=== PATIENT | female | born 1960 | race Caucasian/White ===

== ENCOUNTER 2019-04-11 17:51 | Inpatient (IN) | payer OTHER ==
[2019-04-11] MEDS ORDERED: IPRATROPIUM-ALBUTEROL 3 ML NEB INHALATION STA (18:35)
[2019-04-11] MEDS ORDERED: methylPREDNISolone SOD SUCCI 125 MG/2 ML VIAL IV STA (18:35)
--- NOTE | 2019-04-11 18:47 | ED ---
SOB HPI - General Chief Complaint: Shortness of Breath Stated Complaint: pulmonary embolism Time Seen by Provider: 04/11/19 18:25 Source: patient Mode of arrival: wheelchair Limitations: no limitations - History of Present Illness Initial Comments: This 58-year-old white female presents complaining of shortness of breath. She states that it is been going on for approximate 4-5 days. She does relate that she has chronic breathing problems as she has COPD, asthma, and multiple nodules on her lungs. She states that it is much worse with any exertion she states that she almost feels like her extremities get very weak. She denies any chest pain. She does relate a slight cough with whitish production. She denies any fever. There's been no leg pain or swelling. She's been taking her home Advair. She took a breathing treatment this morning as well. She was seen at her primary care physician's office today and sent to the ER for further pratima atment. She does wear oxygen normally. - Related Data Home Medications Medication Instructions Recorded Confirmed No Known Home Medications 04/11/19 04/11/19 Allergies Allergy/AdvReac Type Severity Reaction Status Date / Time No Known Allergies Allergy Verified 04/11/19 18:34 Review of Systems ROS Statement: Those systems with pertinent positive or pertinent negative responses have been documented in the HPI. ROS Other: All systems not noted in ROS Statement are negative. Past Medical History Past Medical History: COPD Additional Past Medical History / Comment(s): lung nodules History of Any Multi-Drug Resistant Organisms: None Reported Additional Past Surgical History / Comment(s): pelvic surg Past Psychological History: Anxiety Smoking Status: Former smoker Past Alcohol Use History: None Reported Past Drug Use History: None Reported General Exam - General Exam Comments Initial Comments: GENERAL: The patient is well nourished and well hydrated. VITAL SIGNS: Heart rate, blood pressure, respiratory rate reviewed as recorded in nurse's notes. EYES: Pupils are round and reactive. Extraocular movements are intact. No conjunctival / lid redness or swelling. ENT: No external evidence of injury, swelling, or ecchymosis. Airway is patent. Throat is clear. NECK: Nontender. No swelling or evidence of injury. No subcutaneous emphysema. Trachea is midline. No thyroid mass. HEART: Regular rate and rhythm. Good peripheral pulses. LUNGS/CHEST: Diminished breath sounds bilaterally. No rales, rhonchi, or wheezes. No ecchymosis, subcutaneous emphysema, or tenderness. ABDOMEN: Abdomen soft without tenderness. No palpable masses or organomegaly. No peritoneal signs. No abdominal wall swelling or ecchymosis. EXTREMITIES: No extremity tenderness. Normal muscle tone and function. No thoracolumbar tenderness. NEUROLOGIC: Sensation is grossly intact. Cranial nerve exam reveals face is symmetrical, tongue is midline, speech is clear. SKIN: No abrasions or ecchymosis is noted. No induration or masses noted. PSYCHIATRIC: Alert and oriented. Appropriate behavior and judgment. Limitations: no limitations Course Vital Signs 04/11/19 04/11/19 04/11/19 17:55 19:00 19:07 Temperature 98.3 F Pulse Rate 102 H 83 82 Respiratory 24 18 Rate Blood Pressure 159/67 163/78 O2 Sat by Pulse 87 L 95 Oximetry 04/11/19 19:23 Temperature Pulse Rate 84 Respiratory Rate Blood Pressure O2 Sat by Pulse Oximetry Medical Decision Making - Medical Decision Making The patient was seen and examined. All diagnostics were reviewed. The patient had an EKG done which shows a normal sinus rhythm at a rate of 89. There is no acute ST-T wave changes noted. The ID intervals 146, QRS duration is 84, and QTC intervals 442. She does receive a DuoNeb breathing treatment as well as Solu-Medrol 125 mg. The chest x-ray does not show any acute process per my review of final radiologic review pending. The laboratory overall is unremarkable. The patient likely does have an exacerbation of her COPD. She was somewhat worried that she could have a cardiac condition that could be causing her symptoms as well. Her troponin and d-dimer are negative at this point as well. Is felt as though she would benefit from admission to the hospital as her pulse ox was down to 87%. His felt as though she benefit from continued IV steroids and breathing treatments. She states that the last time she had a stress test was over 15 years ago and she may benefit from an additional stress test. Case will be discussed with internal medicine shortly. - Lab Data Result diagrams: 04/11/19 18:27 04/11/19 18:27 Lab Results 04/11/19 04/11/19 04/11/19 Range/Units 18:27 18:27 18:27 WBC 7.6 (3.8-10.6) k/uL RBC 4.74 (3.80-5.40) m/uL Hgb 13.3 (11.4-16.0) gm/dL Hct 41.8 (34.0-46.0) % MCV 88.2 (80.0-100.0) fL MCH 28.2 (25.0-35.0) pg MCHC 31.9 (31.0-37.0) g/dL RDW 15.1 (11.5-15.5) % Plt Count 196 (150-450) k/uL Neutrophils % 66 % Lymphocytes % 19 % Monocytes % 8 % Eosinophils % 4 % Basophils % 0 % Neutrophils # 5.0 (1.3-7.7) k/uL Lymphocytes # 1.5 (1.0-4.8) k/uL Monocytes # 0.6 (0-1.0) k/uL Eosinophils # 0.3 (0-0.7) k/uL Basophils # 0.0 (0-0.2) k/uL PT 9.7 (9.0-12.0) sec INR 0.9 (<1.2) APTT 22.6 (22.0-30.0) sec D-Dimer 0.25 (<0.60) mg/L FEU Sodium 141 (137-145) mmol/L Potassium 4.2 (3.5-5.1) mmol/L Chloride 105 (98-107) mmol/L Carbon Dioxide 30 (22-30) mmol/L Anion Gap 6 mmol/L BUN 14 (7-17) mg/dL Creatinine 0.49 L (0.52-1.04) mg/dL Est GFR (CKD-EPI)AfAm >90 (>60 ml/min/1.73 sqM) Est GFR (CKD-EPI)NonAf >90 (>60 ml/min/1.73 sqM) Glucose 121 H (74-99) mg/dL Calcium 9.5 (8.4-10.2) mg/dL Total Bilirubin 0.3 (0.2-1.3) mg/dL AST 21 (14-36) U/L ALT 24 (9-52) U/L Alkaline Phosphatase 70 (38-126) U/L Troponin I (0.000-0.034) ng/mL NT-Pro-B Natriuret Pep pg/mL Total Protein 6.8 (6.3-8.2) g/dL Albumin 4.0 (3.5-5.0) g/dL 04/11/19 04/11/19 Range/Units 18:27 18:27 WBC (3.8-10.6) k/uL RBC (3.80-5.40) m/uL Hgb (11.4-16.0) gm/dL Hct (34.0-46.0) % MCV (80.0-100.0) fL MCH (25.0-35.0) pg MCHC (31.0-37.0) g/dL RDW (11.5-15.5) % Plt Count (150-450) k/uL Neutrophils % % Lymphocytes % % Monocytes % % Eosinophils % % Basophils % % Neutrophils # (1.3-7.7) k/uL Lymphocytes # (1.0-4.8) k/uL Monocytes # (0-1.0) k/uL Eosinophils # (0-0.7) k/uL Basophils # (0-0.2) k/uL PT (9.0-12.0) sec INR (<1.2) APTT (22.0-30.0) sec D-Dimer (<0.60) mg/L FEU Sodium (137-145) mmol/L Potassium (3.5-5.1) mmol/L Chloride (98-107) mmol/L Carbon Dioxide (22-30) mmol/L Anion Gap mmol/L BUN (7-17) mg/dL Creatinine (0.52-1.04) mg/dL Est GFR (CKD-EPI)AfAm (>60 ml/min/1.73 sqM) Est GFR (CKD-EPI)NonAf (>60 ml/min/1.73 sqM) Glucose (74-99) mg/dL Calcium (8.4-10.2) mg/dL Total Bilirubin (0.2-1.3) mg/dL AST (14-36) U/L ALT (9-52) U/L Alkaline Phosphatase (38-126) U/L Troponin I <0.012 (0.000-0.034) ng/mL NT-Pro-B Natriuret Pep 143 pg/mL Total Protein (6.3-8.2) g/dL Albumin (3.5-5.0) g/dL Disposition Clinical Impression: Acute respiratory failure, COPD exacerbation, Hypertension Disposition: ADMITTED IP TO THIS HOSP Condition: Fair Is patient prescribed a controlled substance at d/c from ED?: No Referrals: Hussain Raymond MD [Primary Care Provider] - 1-2 days Time of Disposition: 20:51 Decision Date: 04/11/19 Decision Time: 20:51
[2019-04-11 18:53] LABS: Basophils % (A) 0 %; Eosinophils # (A) 0.3 k/uL (0-0.7); Eosinophils % (A) 4 %; HCT 41.8 % (34.0-46.0); HGB 13.3 gm/dL (11.4-16.0); Lymphocytes # (A) 1.5 k/uL (1.0-4.8); Lymphocytes % (A) 19 %; MCH 28.2 pg (25.0-35.0); MCHC 31.9 g/dL (31.0-37.0); MCV 88.2 fL (80.0-100.0); Mean Platelet Volume 8.3; Monocytes # (A) 0.6 k/uL (0-1.0); Monocytes % (A) 8 %; Neutrophils % (A) 66 %; Platelet Count 196 k/uL (150-450); RBC 4.74 m/uL (3.80-5.40); RDW 15.1 % (11.5-15.5); WBC 7.6 k/uL (3.8-10.6)
[2019-04-11 19:00] LABS: ALT 24 U/L (9-52); AST 21 U/L (14-36); African American GFR (CKD) >90 (>60 ml/min/1.73 sqM); Alkaline Phosphatase 70 U/L (38-126); Anion Gap 6 mmol/L; Blood Urea Nitrogen 14 mg/dL (7-17); Calcium 9.5 mg/dL (8.4-10.2); Carbon Dioxide 30 mmol/L (22-30); Chloride 105 mmol/L (98-107); Glucose 121 mg/dL (74-99); Potassium 4.2 mmol/L (3.5-5.1); Sodium 141 mmol/L (137-145); Total Bilirubin 0.3 mg/dL (0.2-1.3); Total Protein 6.8 g/dL (6.3-8.2)
[2019-04-11 19:29] LABS: D-Dimer 0.25 mg/L FEU (<0.60); INR 0.9 (<1.2); Partial Thromboplastin Time 22.6 sec (22.0-30.0); Prothrombin Time 9.7 sec (9.0-12.0)
--- NOTE | 2019-04-11 20:30 | XR ---
EXAMINATION: XR chest 2V DATE AND TIME: 04/11/2019 7:04 PM CLINICAL INDICATION: PHH; difficulty breathing TECHNIQUE: Departmental protocol COMPARISON: None FINDINGS: The blank soft tissues are prominent. There is a fine reticular pattern of increased density mildly silhouetting the pulmonary vasculature with cephalization of the pulmonary vasculature noted. These findings are subtle but can correlate wi th a clinical diagnosis of mild interstitial phase pulmonary edema. There are no geographic zones of pulmonary consolidative opacity to suggest atelectasis or pneumonia. The pleural spaces are negative. The cardiac silhouette is mildly enlarged. The remainder of the mediastinal silhouette is unremarkabl e. The skeletal structures and soft tissues are negative for acute findings. IMPRESSION: Subtle bilateral lung parenchymal findings can correlate with a clinical diagnosis of mild interstiti al phase pulmonary edema.
[2019-04-11] MEDS ORDERED: ASPIRIN 81 MG PO STA (20:48)
[2019-04-11] MEDS ORDERED: ALBUTEROL NEBULIZED 2.5 MG/3 ML INHALATION STA (21:07)
[2019-04-11] MEDS: methylPREDNISolone SOD SUCCI 125 MG/2 ML VIAL IV SCH (23:14)
[2019-04-12] MEDS: methylPREDNISolone SOD SUCCI 125 MG/2 ML VIAL IV SCH ×4 (05:32→23:48)
[2019-04-12] MEDS: IPRATROPIUM-ALBUTEROL 3 ML NEB INHALATION PRN ×3 (06:18→15:39)
[2019-04-12] MEDS ORDERED: BENZOCAINE/MENTHOL LOZENG 1 EACH LOZENGE MUCOUS MEM PRN (06:36)
[2019-04-12 06:42] LABS: Glucose,Whole Blood 238 mg/dL (75-99)
[2019-04-12] MEDS ORDERED: BUDESONIDE 0.5 MG/2 ML NEBU INHALATION SCH (08:00)
[2019-04-12] MEDS ORDERED: ASPIRIN 325 MG TAB PO SCH (09:00)
[2019-04-12 11:49] LABS: Glucose,Whole Blood 137 mg/dL (75-99)
[2019-04-12] MEDS: INSULIN ASPART (NovoLOG) 100 UNIT/ML VIAL SQ SCH ×4 (11:59→21:57)
--- NOTE | 2019-04-12 12:16 | P.CNPUL ---
History of Present Illness Consult date: 04/12/19 Reason for consult: COPD History of present illness: 58-year-old female patient with known history of COPD, and ex-smoker who has been followed up by 2 different regulatory affairs portfolio leader at [facility] in [facility]. The patient is oxygen and the patient has uses oxygen on a when necessary basis percent nighttime. The patient has also utilized a combination of Symbicort and Spiriva in the past. She has an albuterol nebulized at home. She came in to the hospital because of worsening shortness of breath of few days' duration. Limited cough and congestion. Increased dyspnea cough chest tightness and wheezing and the patient was actively bronchospastic and wheezy. No fever. No chills. No angina. No pleurisy. No swelling in lower e xtremities. She has undergone previous CAT scan of the chest for questionable pulmonary nodules and these are being monitored through [facility]. I do not have any of the reports from her prior CAT scan of the chest. No nausea. No vomiting. No abdominal pain. Chest x-ray status is with COPD and there is no airspace disease or infiltrates. Troponins are negative. Review of Systems Constitutional: Denies chills, Denies fever Eyes: denies blurred vision, denies bulging eye, denies decreased vision Ears: deny: decreased hearing, ear discharge, earache, tinnitus Ears, nose, mouth and throat: Denies headache, Denies sore throat Cardiovascular: Reports dyspnea on exertion Respiratory: Reports cough, Reports dyspnea, Reports wheezing Gastrointestinal: Denies abdominal pain, Denies diarrhea, Denies nausea, Denies vomiting Genitourinary: Reports as per HPI Menstruation: Reports as per HPI Musculoskeletal: absent: ankle pain, ankle stiffness, ankle swelling Integumentary: Reports as per HPI Neurological: Reports as per HPI Psychiatric: Reports as per HPI Endocrine: Reports as per HPI Hematologic/Lymphatic: Reports as per HPI Allergic/Immunologic: Reports as per HPI Past Medical History Past Medical History: COPD Additional Past Medical History / Comment(s): lung nodules History of Any Multi-Drug Resistant Organisms: None Reported Past Surgical History: Appendectomy, Hysterectomy Additional Past Surgical History / Comment(s): pelvic surg, tummy tuck, Past Anesthesia/Blood Transfusion Reactions: Previous Problems w/ Anesthesia Additional Past Anesthesia/Blood Transfusion Reaction / Comment(s): Hard time bringing pt out of anesthesia. Past Psychological History: Anxiety Smoking Status: Former smoker Past Alcohol Use History: Occasional Additional Past Alcohol Use History / Comment(s): Stopped smoking in 2013. Pt states that she smoked 1 ppd/ Past Drug Use History: None Reported - Past Family History Mother Family Medical History: Congestive Heart Failure (CHF) Additional Family Medical History / Comment(s): CABG X2 Father Additional Family Medical History / Comment(s): Father passed from Hodgkin's Lymphoma Medications and Allergies Home Medications Medication Instructions Recorded Confirmed Type ALPRAZolam [Xanax] 0.5 mg PO BID 04/12/19 04/12/19 History Albuterol Inhaler [Ventolin Hfa 1 - 2 puff INHALATION RT-Q4H PRN 04/12/19 04/12/19 History Inhaler] Budesonide/Formoterol Fumarate 2 puff INHALATION RT-DAILY 04/12/19 04/12/19 History [Symbicort 160-4.5 Mcg Inhaler] HYDROcodone/APAP 10-325MG [[place] 1 tab PO TID-W/MEALS 04/12/19 04/12/19 History 10-325] Ipratropium-Albuterol Nebulize 3 ml INHALATION RT-Q4H PRN 04/12/19 04/12/19 History [Duoneb 0.5 mg-3 mg/3 ml Soln] Liothyronine Sodium [Cytomel] 25 mcg PO DAILY 04/12/19 04/12/19 History Montelukast [Singulair] 10 mg PO DAILY 04/12/19 04/12/19 History Prasterone (Dhea) [Dhea] 25 mg PO DAILY 04/12/19 04/12/19 History Thyroid,Pork [[place] Thyroid] 120 mg PO DAILY 04/12/19 04/12/19 History Tiotropium [place] [Spiriva 1 spray INHALATION RT-DAILY 04/12/19 04/12/19 Histo ry Respimat] Tretinoin [Retin-A 0.1%] 1 applic TOPICAL HS 04/12/19 04/12/19 History Ubidecarenone [Co Q-10] 100 mg PO DAILY 04/12/19 04/12/19 History Verapamil HCl [Verapamil ER] 240 mg PO DAILY 04/12/19 04/12/19 History Vitamin B Complex 1 cap PO DAILY 04/12/19 04/12/19 History Allergies Allergy/AdvReac Type Severity Reaction Status Date / Time No Known Allergies Allergy Verified 04/11/19 18:34 Physical Exam Vitals: Vital Signs Temp Pulse Pulse Resp BP BP Pulse Ox 04/12/19 11:47 84 04/12/19 11:37 84 04/12/19 07:30 97.7 F 108 H 18 154/71 94 L 04/12/19 06:33 106 H 04/12/19 06:19 104 H 04/12/19 03:53 98.3 F 100 18 161/82 89 L 04/12/19 03:46 18 04/12/19 00:00 18 04/11/19 23:31 98.2 F 107 H 18 174/81 87 L 04/11/19 22:37 18 04/11/19 21:34 98.5 F 104 H 18 167/71 87 L 04/11/19 19:23 84 04/11/19 19:07 82 04/11/19 19:00 83 18 163/78 95 04/11/19 17:55 98.3 F 102 H 24 159/67 87 L Intake and Output 04/11/19 04/12/19 04/12/19 22:59 06:59 14:59 Intake Total 20 Balance 20 Intake: Amount of Fluid Infused ( 20 ml) Other: Voiding Method Toilet Toilet Toilet # Voids 1 1 Weight 79.379 kg The patient appeared well nourished and normally developed. Vital signs as documented. Head exam is unremarkable. No scleral icterus or corneal arcus noted. Neck is without jugular venous distension, thyromegaly, or carotid bruits. Carotid upstrokes are brisk bilaterally. Lungs examination revealed the patient has a barrel chest. The patient is marked diminished breath sounds in t he lung bases bilaterally along with prolongation of expiratory phase of breathing. Cardiac exam reveals the PMI to be normally sized and situated. Rhythm is regular. First and second heart sounds normal. No murmurs, rubs or gallops. Abdominal exam reveals normal bowel sounds, no masses, no organomegaly and no aortic enlargement. Extremities are nonedematous and both femoral and pedal pulses are normal.Examination of the skin revealed no evidence of significant rashes, suspicious appearing nevi or other concerning lesions. Neurologically the patient is awake and alert and is no focal neurological deficit. Results - Laboratory Findings CBC and BMP: 04/11/19 18:27 04/11/19 18: PT/INR, D-dimer PT 9.7 sec (9.0-12.0) 04/11/19 18: INR 0.9 (<1.2) 04/11/19 18: D-Dimer 0.25 mg/L FEU (<0.60) 04/11/19 18: Abnormal lab findings: Abnormal Labs 04/11/19 04/12/19 04/12/19 18: 06:35 11:48 Creatinine 0.49 L Glucose 121 H POC Glucose (mg/dL) 238 H 137 H - Diagnostic Findings Chest x-ray: image reviewed Assessment and Plan Plan: 1 acute COPD exacerbation with secondary shortness of breath 2 ex-smoker 3 history of bilateral pulmonary nodules, not seen on today's chest x-ray. The patient has been followed up by serial CAT scan of the chest at [facility] 4 hypothyroidism currently on thyroid hormone replacement Plan Continue DuoNeb nebulized treatments around the clock. IV Solu Medrol 60 mg every 6 hours. Since this patient to a combination of Perforomist and Pulmicort nebulized treatments twice a day and discontinue the Symbicort for now. We'll obtain records from her regulatory affairs portfolio leader regarding her previous pulmonary nodules. We'll continue to follow.
[2019-04-12] MEDS: ENOXAPARIN 40 MG/0.4 ML SYRINGE SQ SCH (12:55)
[2019-04-12] MEDS: HYDROcodone/APAP 10-325MG 1 EACH TAB PO SCH ×2 (12:59→18:03)
[2019-04-12] MEDS: VERAPAMIL SR 240 MG TABLET.ER PO SCH (13:00)
[2019-04-12] MEDS: THYROID, PORK 30 MG TAB PO SCH (13:00)
[2019-04-12] MEDS: LIOTHYRONINE SODIUM 5 MCG TAB PO SCH (13:01)
[2019-04-12] MEDS: ALPRAZolam 0.5 MG TAB PO SCH ×2 (13:01→20:37)
[2019-04-12] MEDS: MONTELUKAST 10 MG TAB PO SCH (13:10)
--- NOTE | 2019-04-12 14:11 | P.CRDCN ---
History of Present Illness History of present illness: This is a pleasant 58-year-old female past medical history significant for COPD, hypertension and benign lung nodules. She denies history of coronary artery disease, dyslipidemia or diabetes mellitus. She does not follow regularly with anyone from cardiology. We have been asked to see her in consultation for shortness of breath. She states she has been short of breath getting p rogressively worse over the last 1-month. The last 1-week has been significantly worse prompting her to come in for further evaluation. She denies chest pain, palpitations, dizziness, nausea, vomiting or diaphoresis. She is seen and examined sitting up in the bed in no acute distress. EKG reveals sinus mechanism with no acute ST or T-wave abnormalities. Chest xray reveals subtle bilateral lung parenchymal findings with mild interstitial pulmonary edema. Laboratory data reviewed, WBC 7.6, hgb 13.3, plt 196, d-dimer 0.25, sodium 141, potassium 4.2, creatinine 0.49, cardiac enzymes negative x3, NTproBNP 143. Current cardiac medications include verapamil 240 mg daily. At the time of my exam: CONSTITUTIONAL: Denies fever. Denies chills. EYES: Denies blurred vision. Denies vision changes. Denies eye pain. EARS, NOSE, MOUTH & THROAT: Denies headache. Denies sore throat. Denies ear pain. CARDIOVASCULAR: Denies chest pain. Complains of shortness of breath. Denies orthopnea. Denies PND. Denies palpitations. RESPIRATORY: Complains of cough. GASTROINTESTINAL: Denies abdominal pain. Denies diarrhea. Denies constipation. Denies nausea. Denies vomiting. MUSCULOSKELETAL: Denies myalgias. INTEGUMENTARY: Denies pruitis. Denies rash. NEUROLOGIC: Denies numbness. Denies tingling. Denies weakness. PSYCHIATRIC: Denies anxiety. Denies depression. ENDOCRINE: Denies fatigue. Denies weight change. Denies polydipsia. Denies polyurina. GENITOURINARY: Denies burning, hematuria or urgency with micturation. HEMATOLOGIC: Denies history of anemia. Denies bleeding. Blood pressure 178/81 heart rate 99 afebrile and maintaining oxygen saturation on nasal cannula GENERAL: This is a 58-year-old female in no apparent distress at the time of my examination. HEENT: Head is atraumatic, normocephalic. Pupils are equal, round. Sclerae anicteric. Conjunctivae are clear. Mucous membranes of the mouth are moist. Neck is supple. There is no jugular venous distention. No carotid bruit is heard. LUNGS: Clear to auscultation no wheezes, rales or rhonchi. No chest wall tenderness is noted on palpation or with deep breathing. Significantly diminished. HEART: Regular rate and rhythm without murmurs, rubs or gallops. S1 and S2 heard. ABDOMEN: Soft, nontender. Bowel sounds are heard. No organomegaly noted. EXTREMITIES: No evidence of peripheral edema and no calf tenderness noted. VASCULAR: Radial and dorsalis pedis pulses palpated, no evidence of clubbing. NEUROLOGIC: Patient is awake, alert and oriented x3. ASSESSMENT Shortness of breath, progressive. An acute coronary event has been ruled out. Acute exacerbation of COPD Chronic lung nodules Former nicotine dependence PLAN An acute coronary event has been ruled out. No evidence to suggest heart failure, pt is euvolemic. Symptoms related to COPD. Echo has been obtained and will be reviewed. Ongoing medical management. We will follow as needed, thank you for this consultation. Nurse Practitioner note has been reviewed, I agree with a documented findings and plan of care. Patient was seen and examined. Past Medical History Past Medical History: COPD Additional Past Medical History / Comment(s): lung nodules History of Any Multi-Drug Resistant Organisms: None Reported Past Surgical History: Appendectomy, Hysterectomy Additional Past Surgical History / Comment(s): pelvic surg, tummy tuck, Past Anesthesia/Blood Transfusion Reactions: Previous Problems w/ Anesthesia Additional Past Anesthesia/Blood Transfusion Reaction / Comment(s): Hard time bringing pt out of anesthesia. Past Psychological History: Anxiety Smoking Status: Former smoker Past Alcohol Use History: Occasional Additional Past Alcohol Use History / Comment(s): Stopped smoking in 2013. Pt states that she smoked 1 ppd/ Past Drug Use History: None Reported - Past Family History Mother Family Medical History: Congestive Heart Failure (CHF) Additional Family Medical History / Comment(s): CABG X2 Father Additional Family Medical History / Comment(s): Father passed from Hodgkin's Lymphoma Medications and Allergies Home Medications Medication Instructions Recorded Confirmed Type ALPRAZolam [Xanax] 0.5 mg PO BID 04/12/19 04/12/19 History Albuterol Inhaler [Ventolin Hfa 1 - 2 puff INHALATION RT-Q4H PRN 04/12/19 04/12/19 History Inhaler] Budesonide/Formoterol Fumarate 2 puff INHALATION RT-DAILY 04/12/19 04/12/19 History [Symbicort 160-4.5 Mcg Inhaler] HYDROcodone/APAP 10-325MG [[place] 1 tab PO TID-W/MEALS 04/12/19 04/12/19 History 10-325] Ipratropium-Albuterol Nebulize 3 ml INHALATION RT-Q4H PRN 04/12/19 04/12/19 History [Duoneb 0.5 mg-3 mg/3 ml Soln] Liothyronine Sodium [Cytomel] 25 mcg PO DAILY 04/12/19 04/12/19 History Montelukast [Singulair] 10 mg PO DAILY 04/12/19 04/12/19 History Prasterone (Dhea) [Dhea] 25 mg PO DAILY 04/12/19 04/12/19 History Thyroid,Pork [[place] Thyroid] 120 mg PO DAILY 04/12/19 04/12/19 History Tiotropium [place] [Spiriva 1 spray INHALATION RT-DAILY 04/12/19 04/12/19 History Respimat] Tretinoin [Retin-A 0.1%] 1 applic TOPICAL HS 04/12/19 04/12/19 History Ubidecarenone [Co Q-10] 100 mg PO DAILY 04/12/19 04/12/19 History Verapamil HCl [Verapamil ER] 240 mg PO DAILY 04/12/19 04/12/19 History Vitamin B Complex 1 cap PO DAILY 04/12/19 04/12/19 History Allergies Allergy/AdvReac Type Severity Reaction Status Date / Time No Known Allergies Allergy Verified 04/11/19 18:34 Physical Exam Vitals: Vital Signs Temp Pulse Pulse Resp BP BP BP 04/12/19 11:47 84 04/12/19 11:45 97.6 F 99 18 178/81 04/12/19 11:37 84 04/12/19 07:30 97.7 F 108 H 18 154/71 04/12/19 06:33 106 H 04/12/19 06:19 104 H 04/12/19 03:53 98.3 F 100 18 161/82 04/12/19 03:46 18 04/12/19 00:00 18 04/11/19 23:31 98.2 F 107 H 18 174/81 04/11/19 22:37 18 04/11/19 21:34 98.5 F 104 H 18 167/71 04/11/19 19:23 84 04/11/19 19:07 82 04/11/19 19:00 83 18 163/78 04/11/19 17:55 98.3 F 102 H 24 159/67 Pulse Ox 04/12/19 11:47 04/12/19 11:45 94 L 04/12/19 11:37 04/12/19 07:30 94 L 04/12/19 06:33 04/12/19 06:19 04/12/19 03:53 89 L 04/12/19 03:46 04/12/19 00:00 04/11/19 23:31 87 L 04/11/19 22:37 04/11/19 21:34 87 L 04/11/19 19:23 04/11/19 19:07 04/11/19 19:00 95 04/11/19 17:55 87 L Intake and Output 04/11/19 04/12/19 04/12/19 22:59 06:59 14:59 Intake Total 20 Balance 20 Intake: Amount of Fluid Infused ( 20 ml) Other: Voiding Method Toilet Toilet Toilet # Voids 1 1 Weight 79.379 kg Results 04/11/19 18:27 04/11/19 18:27 Cardiac Enzymes 04/11/19 04/11/19 04/12/19 Range/Units 18:27 18:27 00:18 AST 21 (14-36) U/L Troponin I <0.012 <0.012 (0.000-0.034) ng/mL 04/12/19 Range/Units 06:08 AST (14-36) U/L Troponin I <0.012 (0.000-0.034) ng/mL Coagulation 04/11/19 Range/Units 18:27 PT 9.7 (9.0-12.0) sec APTT 22.6 (22.0-30.0) sec CBC 04/11/19 Range/Units 18:27 WBC 7.6 (3.8-10.6) k/uL RBC 4.74 (3.80-5.40) m/uL Hgb 13.3 (11.4-16.0) gm/dL Hct 41.8 (34.0-46.0) % Plt Count 196 (150-450) k/uL Comprehensive Metabolic Panel 04/11/19 Range/Units 18:27 Sodium 141 (137-145) mmol/L Potassium 4.2 (3.5-5.1) mmol/L Chloride 105 (98-107) mmol/L Carbon Dioxide 30 (22-30) mmol/L BUN 14 (7-17) mg/dL Creatinine 0.49 L (0.52-1.04) mg/dL Glucose 121 H (74-99) mg/dL Calcium 9.5 (8.4-10.2) mg/dL AST 21 (14-36) U/L ALT 24 (9-52) U/L Alkaline Phosphatase 70 (38-126) U/L Total Protein 6.8 (6.3-8.2) g/dL Albumin 4.0 (3.5-5.0) g/dL Current Medications Generic Name Dose Route Start Last Admin Trade Name Freq PRN Reason Stop Dose Admin Hydrocodone Bitart/Acetaminophen 1 each 04/12/19 12:30 04/12/19 12:59 [place] 10 PO 1 each TID-W/MEALS ROXY Administration Albuterol/Ipratropium 3 ml 04/11/19 20:52 04/12/19 11:37 Duoneb 0.5 Mg-3 Mg/3 Ml Soln INHALATION 3 ml RT-Q4H PRN Administration Shortness Of Breath Or Wheezing Alprazolam 0.5 mg 04/12/19 10:15 04/12/19 13:01 Xanax PO Not Given BID ROXY Aspirin 325 mg 04/12/19 09:00 04/12/19 12:55 Aspirin PO 325 mg DAILY ROXY Administration Benzocaine/Menthol 1 each 04/12/19 06:36 04/12/19 06:54 Cepacol Lozenge MUCOUS MEM 1 each Q4HR PRN Administration Cough Budesonide 0.5 mg 04/12/19 08:00 04/12/19 06:18 Pulmicort INHALATION 0.5 mg RT-BID ROXY Administration Enoxaparin Sodium 40 mg 04/12/19 09:00 04/12/19 12:55 Lovenox SQ 40 mg DAILY ROXY Administration Formoterol Fumarate 20 mcg 04/12/19 20:00 Perforomist INHALATION RT-BID ROXY Insulin Aspart 0 unit 04/12/19 07:30 04/12/19 12:43 Novolog SQ Not Given ACHS [facility] Protocol Liothyronine Sodium 25 mcg 04/12/19 10:15 04/12/19 13:01 Cytomel PO 25 mcg DAILY ROXY Administration Methylprednisolone Sodium Succinate 60 mg 04/12/19 00:00 04/12/19 12:56 Solu-Medrol IV 60 mg Q6HR ROXY Administration Montelukast Sodium 10 mg 04/12/19 10:15 04/12/19 13:10 Singulair PO 10 mg DAILY ROXY Administration Prasterone (Dhea) [ 25 mg 04/13/19 09:00 Dhea] 25 Mg PO DAILY ROXY Thyroid 120 mg 04/12/19 10:15 04/12/19 13:00 [place] Thyroid PO 120 mg DAILY ROXY Administration Verapamil HCl 240 mg 04/12/19 10:15 04/12/19 13:00 Isoptin Sr PO 240 mg DAILY ROXY Administration Intake and Output 04/11/19 04/12/19 04/12/19 22:59 06:59 14:59 Intake Total 20 Balance 20 Intake: Amount of Fluid Infused ( 20 ml) Other: Voiding Method Toilet Toilet Toilet # Voids 1 1 Weight 79.379 kg 04/11/19 18:27 04/11/19 18:27
[2019-04-12 16:37] LABS: Glucose,Whole Blood 205 mg/dL (75-99)
--- NOTE | 2019-04-12 18:40 | ECHOF ---
Referral Reason:sob MEASUREMENTS -------- HEIGHT: 162.6 cm WEIGHT: 79.4 kg BP: 161/82 IVSd: 1.4 cm (0.6 - 1.1) LVIDd: 4.1 cm (3.9 - 5.3) LVPWd: 1.4 cm (0.6 - 1.1) IVSs: 1.8 cm LVIDs: 2.8 cm LVPWs: 1.7 cm RVIDd: 2.9 cm (< 3.3) LAESV Index (A-L): 37.51 ml/m Ao Diam: 2.2 cm (2.0 - 3.7) LA Diam: 3.9 cm (2.7 - 3.8) AV Cusp: 1.8 cm (1.5 - 2.6) EPSS: 1.1 cm MV E Jaden: 0.87 m/s MV DecT: 302 ms MV A Jaden: 1.28 m/s MV E/A Ratio: 0.68 RAP: 5.00 mmHg RVSP: 38.17 mmHg MV EF SLOPE: 22.20 mm/s (70 - 150) MV EXCURSION: 0.67 cm (> 18.000) FINDINGS -------- Sinus rhythm. This was a technically difficult study with suboptimal parasternal views. The left ventricular size is normal. There is moderate concentric left ventricular hypertrophy. O verall left ventricular systolic function is normal with, an EF between 55 - 60 %. The right ventricle is normal in size and function. Left atrium is moderately dilated by volume. The right atrial size is normal. Lumason used There is no evidence of aortic regurgitation. Mild mitral annular calcification present. Mild mitral regurgitation is present. Mild tricuspid regurgitation present. There is no evidence of pulmonary hypertension. The right v entricular systolic pressure, as measured by Doppler, is 38.17mmHg. There is no pulmonic regurgitation present. The aortic root size is normal. The inferior vena cava was not well visualized. There is no pericardial effusion. CONCLUSIONS -------- 1. Sinus rhythm. 2. This was a technically difficult study with suboptimal parasternal views. 3. The left ventricular size is normal. 4. There is moderate concentric left ventricular hypertrophy. 5. Overall left ventricular systolic function is normal with, an EF between 55 - 60 %. 6. The right ventricle is normal in size and function. 7. Left atrium is moderately dilated by volume. 8. The right atrial size is normal. 9. Lumason used 10. There is no evidence of aortic regurgitation. 11. Mild mitral annular calcification present. 12. Mild mitral regurgitation is present. 13. Mild tricuspid regurgitation present. 14. There is no evidence of pulmonary hypertension. 15. The right ventricular systolic pressure, as measured by Doppler, is 38.17mmHg. 16. There is no pulmonic regurgitation present. 17. The aortic root size is normal. 18. The inferior vena cava was not well visualized. 19. There is no pericardial effusion. CUT OFF TENDER GLASS: Adriane Vasquez RDCS
[2019-04-12] MEDS: FORMOTEROL FUMARATE 20 MCG/2 ML NEBU INHALATION SCH (20:08)
[2019-04-12] MEDS: IPRATROPIUM-ALBUTEROL 3 ML NEB INHALATION SCH (20:08)
[2019-04-12] MEDS: BUDESONIDE 1 MG/2 ML NEBU INHALATION SCH (20:16)
[2019-04-12] MEDS ORDERED: TRETINOIN TOPICAL SCH (21:00)
[2019-04-12 21:04] LABS: Glucose,Whole Blood 179 mg/dL (75-99)
--- NOTE | 2019-04-12 22:37 | HP ---
HISTORY AND PHYSICAL DATE OF ADMISSION: 04/11/2019 DATE OF SERVICE: 04/12/2019 PRESENTING COMPLAINT: Short of breath. HISTORY OF PRESENTING COMPLAINT: This is a pleasant 58-year-old patient of Dr. Raymond. Chronic stable medical conditions include lung nodules being followed out of [place], anxiety, hypothyroid, hypertension. Patient at her baseline is short of breath but for about a week has been progressively more short of breath, with some edema in the lower extremity. Minimal cough. No sputum. No fever. No chills. Some wheezing. She became quite short of breath and decided to come in. Pulse ox was 87% on room air. No chest pain. No palpitations. REVIEW OF SYSTEMS: CONSTITUTIONAL: Tired. HEENT: None. RESPIRATORY: As above. CARDIOVASCULAR: Orthopnea. GASTROINTESTINAL: None. MUSCULOSKELETAL: Pain in the joints. DERMATOLOGICAL: None. HEMATOLOGICAL: None. LYMPHATICS: None. PSYCHIATRY: Anxiety. NEUROLOGICAL: None. PAST MEDICAL HISTORY: 1. COPD. 2. Lung nodules. 3. Anxiety. 4. Hypothyroid. 5. Hypertension. PAST SURGICAL HISTORY: 1. Appendectomy. 2. Hysterectomy. 3. Pelvic surgery. 4. Tummy tuck. PSYCH HISTORY: Anxiety. SOCIAL HISTORY: The patient smoked a pack a day for 40 years; stopped in 2013. Alcohol none. Lives by herself. FAMILY HISTORY: Congestive heart failure, coronary artery bypass. HOME MEDICATIONS: 1. Vitamin B complex 1 capsule p.o. daily. 2. Verapamil ER 240 mg a day. 3. CoQ10 100 mg p.o. daily. 4. Retin-A 0.1% topically at bedtime. 5. Spiriva 1 spray daily. 6. [place] Thyroid 120 mg p.o. daily. 7. Singulair 10 mg daily. 8. Cytomel 25 mcg p.o. daily. 9. DuoNeb q.4 p.r.n. 10.[place] 10 one tablet t.i.d. with meals. 11.Symbicort 160/4.5 two puffs daily. 12.Ventolin HFA 1 or 2 puffs q.4 p.r.n. 13.Xanax 0.5 p.o. b.i.d. ALLERGIES: NONE. PHYSICAL EXAMINATION: VITAL SIGNS ON PRESENTATION: Temperature 98.3, pulse 102, respiration 24, blood pressure 159/67, pulse ox 87% on room air. GENERAL APPEARANCE: Well built; BMI 30. Sitting at the edge of bed, short of breath. EYES: Pupils equal. Conjunctivae normal. HEENT: External appearance of nose and ears normal. Oral cavity normal. NECK: JVD not raised. Mass not palpable. RESPIRATORY: Effort increased. LUNGS: Diminished breath sounds. Prolonged expiration. CARDIOVASCULAR: First and second sounds normal. Some edema present. ABDOMEN: Soft, nontender. Liver and spleen not palpable. LYMPHATIC: No lymph node palpable in neck or axillae. PSYCHIATRY: Alert and oriented x3. Mood and affect normal. NEUROLOGICAL: Pupils equal. Cranial nerves grossly intact. Power and sensation grossly intact. INVESTIGATIONS: White count 7.6, hemoglobin 13.3, platelets 196. Potassium 4.2, BUN 14, creatinine 0.49. Accu-Cheks 238, 137. Troponin x3 negative. ProBNP 143. EKG tracing, personally reviewed by me, shows normal sinus rhythm. Chest x-ray film, personally reviewed by me, shows slight cardiomegaly, possibly some chronic changes, interstitial prominence. Two-D echocardiogram shows moderate concentric left ventricular hypertrophy, EF 55% to 60%. Right ventricle is normal in size. ASSESSMENT: 1. Acute chronic obstructive pulmonary disease exacerbation in an ex-smoker. 2. Bilateral lower extremity venous insufficiency. 3. Chronic lung nodules, being followed as an outpatient. 4. Anxiety not otherwise specified. 5. Hypothyroidism. 6. Essential hypertension. 7. Acute hypoxic respiratory failure from chronic obstructive pulmonary disease exacerbation, present on admission. PLAN: Patient was started on IV Solu-Medrol, DuoNeb. Home medications are resumed. Inhaled steroids are also given. Accu-Cheks will be followed. There is no clinical evidence of CHF. Care was discussed the patient. Questions were answered. MMODL / IJN: [id number] /
[2019-04-13] MEDS: IPRATROPIUM-ALBUTEROL 3 ML NEB INHALATION SCH ×6 (00:24→19:20)
[2019-04-13 06:48] LABS: Glucose,Whole Blood 157 mg/dL (75-99)
[2019-04-13] MEDS: FORMOTEROL FUMARATE 20 MCG/2 ML NEBU INHALATION SCH ×2 (07:29→19:20)
[2019-04-13] MEDS: BUDESONIDE 1 MG/2 ML NEBU INHALATION SCH ×2 (07:29→19:20)
[2019-04-13] MEDS ORDERED: NON-FORMULARY DRUG (Vitamin B Complex [Vitamin B Complex] 1 CAP) PO SCH (09:00)
[2019-04-13] MEDS: methylPREDNISolone SOD SUCCI 125 MG/2 ML VIAL IV SCH ×3 (09:38→18:14)
[2019-04-13] MEDS: MONTELUKAST 10 MG TAB PO SCH (09:39)
[2019-04-13] MEDS: ALPRAZolam 0.5 MG TAB PO SCH ×2 (09:39→22:01)
[2019-04-13] MEDS: INSULIN ASPART (NovoLOG) 100 UNIT/ML VIAL SQ SCH ×4 (09:39→22:01)
[2019-04-13] MEDS: HYDROcodone/APAP 10-325MG 1 EACH TAB PO SCH ×3 (09:39→18:13)
[2019-04-13] MEDS: ENOXAPARIN 40 MG/0.4 ML SYRINGE SQ SCH ×2 (09:39→09:55)
[2019-04-13] MEDS: LIOTHYRONINE SODIUM 5 MCG TAB PO SCH (09:40)
[2019-04-13] MEDS: PRASTERONE 25 MG PO SCH (09:40)
[2019-04-13] MEDS: VERAPAMIL SR 240 MG TABLET.ER PO SCH (09:40)
[2019-04-13] MEDS: THYROID, PORK 30 MG TAB PO SCH (09:41)
[2019-04-13 11:35] LABS: Glucose,Whole Blood 203 mg/dL (75-99)
--- NOTE | 2019-04-13 13:36 | P.PN ---
Subjective Progress Note Date: 04/13/19 58-year-old female patient with known history of COPD, and ex-smoker who has been followed up by 2 different drop press hand at in [facility]. The patient is oxygen and the patient has uses oxygen on a when necessary basis percent nighttime. The patient has also utilized a combination of Symbicort and Spiriva in the past. She has an albuterol nebulized at home. She came in to the hospital because of worsening shortness of breath of few days' duration. Limited cough and congestion. Increased dyspnea cough chest tightness and wheezing and the patient was actively bronchospastic and wheezy. No fever. No chills. No angina. No pleurisy. No swelling in lower extremities. She has undergone previous CAT scan of the chest for questionable pulmonary nodules and these are being monitored through . I do not have any of the reports from her prior CAT scan of the chest. No nausea. No vomiting. No abdominal pain. Chest x-ray status is with COPD and there is no airspace disease or infiltrates. Troponins are negative. Today's evaluation of 04/13/2019 the patient is feeling better. The patient is gradually improving and the patient is less short of breath. I was able to review the CAT scan of the chest was done at [facility] and the patient had nonspecific but the pulmonary nodules that are being surveyed by serial CAT scans of the chest. No mediastinal lymphadenopathy. No suspicion for any malignancy. The patient remains on bronchodilators patient on IV Solu- Medrol. No shortness of breath compared to yesterday. No chest pain. No major swelling lower extremities. No hemoptysis. No pleurisy. She is able to speak full sentences. Objective - Vital Signs Vital signs: Vital Signs Temp 98.6 F 04/13/19 08:00 Pulse 82 04/13/19 12:00 Resp 16 04/13/19 12:00 BP 151/82 04/13/19 12:00 Pulse Ox 98 04/13/19 12:00 Intake & Output 04/12/19 04/13/19 04/13/19 18:59 06:59 18:59 Intake Total 400 480 Balance 400 480 Intake: Oral 400 480 Other: Voiding Method Toilet Toilet # Voids 1 2 - Exam The patient appeared well nourished and normally developed. Vital signs as documented. Head exam is unremarkable. No scleral icterus or corneal arcus noted. Neck is without jugular venous distension, thyromegaly, or carotid bruits. Carotid upstrokes are brisk bilaterally. Lungs examination revealed the patient has a barrel chest. The patient is marked diminished breath sounds in the lung bases bilaterally along with prolongation of expiratory phase of breathing. Cardiac exam reveals the PMI to be normally sized and situated. Rhythm is regular. First and second heart sounds normal. No murmurs, rubs or gallops. Abdominal exam reveals normal bowel sounds, no masses, no organomegaly and no aortic enlargement. Extremities are nonedematous and both femoral and pedal pulses are normal.Examination of the skin revealed no evidence of significant rashes, suspicious appearing nevi or other concerning lesions. Neurologically the patient is awake and alert and is no focal neurological deficit. - Labs CBC & Chem 7: 04/11/19 18:27 04/11/19 18:27 Labs: Abnormal Lab Results - Last 24 Hours (Table) 04/12/19 04/12/19 04/13/19 Range/Units 16:36 20:57 06:46 POC Glucose (mg/dL) 205 H 179 H 157 H (75-99) mg/dL 04/13/19 Range/Units 11:33 POC Glucose (mg/dL) 203 H (75-99) mg/dL Microbiology - Last 24 Hours (Table) 04/11/19 18:46 Blood Culture - Preliminary Blood No Growth after 24 hours Assessment and Plan Plan: 1 acute COPD exacerbation with secondary shortness of breath, improving 2 ex-smoker 3 history of bilateral pulmonary nodules, not seen on today's chest x-ray. The patient has been followed up by serial CAT scan of the chest at [facility] 4 hypothyroidism currently on thyroid hormone replacement 5 nonspecific bilateral pulmonary nodules for which the patient is undergoing serial CAT scan of the chest. Plan Continue DuoNeb nebulized treatments around the clock. IV Solu Medrol 60 mg every 6 hours. Since this patient to a combination of Perforomist and Pulmicort nebulized treatments twice a day and the patient is improving. We'll keep the patient has to follow 24 hours for ongoing treatment. Monitor oxygenation and assess for home O2. We'll continue to follow. CAT scan of the chest was reviewed. No need for biopsies or any immediate intervention at this point in time.
[2019-04-13 16:49] LABS: Glucose,Whole Blood 232 mg/dL (75-99)
[2019-04-13 19:33] VITALS: RESP 18
[2019-04-13 20:37] LABS: Glucose,Whole Blood 153 mg/dL (75-99)
--- NOTE | 2019-04-13 23:28 | PN ---
PROGRESS NOTE DATE OF SERVICE: April 13, 2019. PRESENTING COMPLAINT: Short of breath. INTERVAL HISTORY: This ex-smoker presented with severe COPD exacerbation. Breathing is a shade better though still quite a bit short of breath. No cough. No fever. No chills. Tolerating a diet. Sitting up on the bed. REVIEW OF SYSTEMS: Done for constitutional, cardiovascular, GI, pulmonary; relevant findings as above. CURRENT MEDICATIONS: Reviewed that include DuoNeb and IV Solu-Medrol inhaled steroids. PHYSICAL EXAMINATION: VITAL SIGNS: Temperature 98.4, pulse 87, respiratory 18, blood pressure 133/65. Pulse ox 93 percent on 2 L. GENERAL APPEARANCE: Sitting up on bed, awake. EYES: Pupils are equal. Conjunctivae normal. NECK: JVD not raised. Mass not palpable. RESPIRATORY: Effort increased. LUNGS: Diminished breath sounds. Prolonged expiration. CARDIOVASCULAR: 1st and 2nd sounds normal. Minimal edema. ABDOMEN: Soft, nontender. Liver and spleen not palpable. PSYCHIATRY: Alert and oriented x3. Mood and affect normal. INVESTIGATIONS: Accu-Cheks are noted, 203, 232 and 153. ASSESSMENT: 1. Acute severe chronic obstructive pulmonary disease exacerbation in an ex-smoker. 2. Bilateral lower extremity venous insufficiency. 3. Chronic lung nodules being followed as an outpatient out of [place]. 4. Anxiety, not otherwise specified. 5. Hypothyroidism. 6. Essential hypertension. 7. Acute hypoxic respiratory failure from chronic obstructive pulmonary disease. PLAN: Care was discussed with the patient. Condition was explained. Continue current treatment plan. Follow with Pulmonary. MMODL / IJN: [id number] /
[2019-04-14] MEDS: methylPREDNISolone SOD SUCCI 125 MG/2 ML VIAL IV SCH ×3 (00:56→13:01)
[2019-04-14] MEDS: IPRATROPIUM-ALBUTEROL 3 ML NEB INHALATION SCH ×5 (01:20→15:04)
[2019-04-14 06:43] LABS: Glucose,Whole Blood 144 mg/dL (75-99)
[2019-04-14] MEDS: FORMOTEROL FUMARATE 20 MCG/2 ML NEBU INHALATION SCH (07:20)
[2019-04-14] MEDS: BUDESONIDE 1 MG/2 ML NEBU INHALATION SCH (07:20)
[2019-04-14] MEDS: INSULIN ASPART (NovoLOG) 100 UNIT/ML VIAL SQ SCH ×2 (07:40→12:36)
[2019-04-14] MEDS: LIOTHYRONINE SODIUM 5 MCG TAB PO SCH (08:41)
[2019-04-14] MEDS: HYDROcodone/APAP 10-325MG 1 EACH TAB PO SCH ×2 (08:42→13:00)
[2019-04-14] MEDS: MONTELUKAST 10 MG TAB PO SCH (08:42)
[2019-04-14] MEDS: ALPRAZolam 0.5 MG TAB PO SCH (08:42)
[2019-04-14] MEDS: PRASTERONE 25 MG PO SCH (08:43)
[2019-04-14] MEDS: VERAPAMIL SR 240 MG TABLET.ER PO SCH (08:43)
[2019-04-14] MEDS: THYROID, PORK 30 MG TAB PO SCH (08:43)
[2019-04-14] MEDS: ENOXAPARIN 40 MG/0.4 ML SYRINGE SQ SCH (08:43)
[2019-04-14 11:55] VITALS: BP 117/83; TEMP 98.5
[2019-04-14 11:59] LABS: Glucose,Whole Blood 139 mg/dL (75-99)
[2019-04-14 13:13] VITALS: PULSE 78
--- NOTE | 2019-04-14 13:24 | P.PN ---
Subjective Progress Note Date: 04/14/19 58-year-old female patient with known history of COPD, and ex-smoker who has been followed up by 2 different vulnerability researcher at [facility] in [facility]. The patient is oxygen and the patient has uses oxygen on a when necessary basis percent nighttime. The patient has also utilized a combination of Symbicort and Spiriva in the past. She has an albuterol nebulized at home. She came in to the hospital because of worsening shortness of breath of few days' duration. Limited cough and congestion. Increased dyspnea cough chest tightness and wheezing and the patient was actively bronchospastic and wheezy. No fever. No chills. No angina. No pleurisy. No swelling in lower extremities. She has undergone previous CAT scan of the chest for questionable pulmonary nodules and these are being monitored through [facility]. I do not have any of the reports from her prior CAT scan of the chest. No nausea. No vomiting. No abdominal pain. Chest x-ray status is with COPD and there is no airspace disease or infiltrates. Troponins are negative. Today's evaluation of 04/13/2019 the patient is feeling better. The patient is gradually improving and the patient is less short of breath. I was able to review the CAT scan of the chest was done at [facility] and the patient had nonspecific but the pulmonary nodules that are being surveyed by serial CAT scans of the chest. No mediastinal lymphadenopathy. No suspicion for any malignancy. The patient remains on bronchodilators patient on IV Solu- Medrol. No shortness of breath compared to yesterday. No chest pain. No major swelling lower extremities. No hemoptysis. No pleurisy. She is able to speak full sentences. On 04/14/2019 I'm seeing this patient for a follow-up. The patient is doing better. Less short of breath. Gradually improving on a day-to-day basis. She remains on IV Solu-Medrol 60 mg every 6 hours. She is on DuoNeb nebulized treatments around the clock. She is also on a combination of Perforomist and Pulmicort neb last 2 minutes twice a day. Outpatient basis, the patient takes Symbicort and Spiriva. No thrush. No change in her voice characteristics. Anxiety levels are low. Objective - Vital Signs Vital signs: Vital Signs Temp 98.5 F 04/14/19 11:52 Pulse 78 04/14/19 13:11 Resp 18 04/14/19 12:00 BP 117/83 04/14/19 11:52 Pulse Ox 87 L 04/14/19 13:11 Intake & Output 04/13/19 04/14/19 04/14/19 18:59 06:59 18:59 Intake Total 480 720 Balance 480 720 Intake: Oral 480 720 Other: Voiding Method Toilet Toilet Toilet # Voids 1 1 2 - Exam The patient appeared well nourished and normally developed. Vital signs as documented. Head exam is unremarkable. No scleral icterus or corneal arcus noted. Neck is without jugular venous distension, thyromegaly, or carotid bruits. Carotid upstrokes are brisk bilaterally. Lungs examination revealed the patient has a barrel chest. The patient is marked diminished breath sounds in the lung bases bilaterally along with prolongation of expiratory phase of breathing. Cardiac exam reveals the PMI to be normally sized and situated. Rhythm is regular. First and second heart sounds normal. No murmurs, rubs or gallops. Abdominal exam reveals normal bowel sounds, no masses, no organomegaly and no aortic enlargement. Extremities are nonedematous and both femoral and pedal pulses are normal.Examination of the skin revealed no evidence of significant rashes, suspicious appearing nevi or other concerning lesions. Neurologically the patient is awake and alert and is no focal neurological deficit. - Labs CBC & Chem 7: 04/11/19 18:27 04/11/19 18:27 Labs: Abnormal Lab Results - Last 24 Hours (Table) 04/13/19 04/13/19 04/14/19 Range/Units 16:44 20:35 06:39 POC Glucose (mg/dL) 232 H 153 H 144 H (75-99) mg/dL 04/14/19 Range/Units 11:45 POC Glucose (mg/dL) 139 H (75-99) mg/dL Microbiology - Last 24 Hours (Table) 04/11/19 18:46 Blood Culture - Preliminary Blood No Growth after 48 hours Assessment and Plan Plan: 1 acute COPD exacerbation with secondary shortness of breath, improving 2 ex-smoker 3 history of bilateral pulmonary nodules, not seen on today's chest x-ray. The patient has been followed up by serial CAT scan of the chest at [facility] 4 hypothyroidism currently on thyroid hormone replacement 5 nonspecific bilateral pulmonary nodules for which the patient is undergoing serial CAT scan of the chest. Plan This continued IV Solu-Medrol and put the patient on prednisone burst taper. The patient can be discharged home today on Symbicort and Spiriva maintenance and prednisone burst taper starting with 40 mg to be tapered by 10 mg every 4 days. Outpatient PFT. Evaluate for home O2, depending on her exertional oxygenation saturations. We'll continue to follow.
--- NOTE | 2019-04-14 14:23 | P.PN ---
Subjective 58-year-old female was admitted through exacerbation short of breath improved but patient is still desaturating with the INSERTION isn't going down to 79% patient is wishing not to use oxygen on the basis patient does use oxygen at nighttime for sleep apnea. Since his desaturating will keep her one more day patient has significantly decreased air entry bilateral lung manzanares no wheezing was appreciated patient is a saturating well can be discharged tomorrow if she is not saturating well patient will need 24 7 oxygen at that time at least tempo rarily. Constitutional: Denied any fatigue denied any fever. Cardio vascular: denied any chest pain, palpitations Gastrointestinal denied any nausea vomiting Pulmonary: Denied any shortness of breath cough Neurologic denied any new focal deficits All inpatient medications were reviewed and appropriate changes in these medications as dictated in the interval history and assessment and plan. Objective - Vital Signs Vital signs: Vital Signs Temp 98.5 F 04/14/19 11:52 Pulse 78 04/14/19 13:11 Resp 18 04/14/19 12:00 BP 117/83 04/14/19 11:52 Pulse Ox 87 L 04/14/19 13:11 Intake & Output 04/13/19 04/14/19 04/14/19 18:59 06:59 18:59 Intake Total 480 720 Balance 480 720 Intake: Oral 480 720 Other: Voiding Method Toilet Toilet Toilet # Voids 1 1 2 - Exam PHYSICAL EXAMINATION: GENERAL: The patient is alert and oriented x3, not in any acute distress. Well developed, well nourished. HEENT: Pupils are round and equally reacting to light. EOMI. No scleral icterus. No conjunctival pallor. Normocephalic, atraumatic. No pharyngeal erythema. No thyromegaly. CARDIOVASCULAR: S1 and S2 present. No murmurs, rubs, or gallops. PULMONARY: decreased air entry into bilateral lung is no wheezing was appreciated no crackles were appreciated ABDOMEN: Soft, nontender, nondistended, normoactive bowel sounds. No palpable organomegaly. MUSCULOSKELETAL: No joint swelling or deformity. EXTREMITIES: No cyanosis, clubbing, or pedal edema. NEUROLOGICAL: Gross neurological examination did not reveal any focal deficits. SKIN: No rashes. - Labs CBC & Chem 7: 04/11/19 18:27 04/11/19 18:27 Labs: Abnormal Lab Results - Last 24 Hours (Table) 04/13/19 04/13/19 04/14/19 Range/Units 16:44 20:35 06:39 POC Glucose (mg/dL) 232 H 153 H 144 H (75-99) mg/dL 04/14/19 Range/Units 11:45 POC Glucose (mg/dL) 139 H (75-99) mg/dL Microbiology - Last 24 Hours (Table) 04/11/19 18:46 Blood Culture - Preliminary Blood No Growth after 48 hours Assessment and Plan Plan: -COPD exacerbation: Continue with systemic steroids in remission treatments plan as mentioned above -History of bilateral pulmonary nodules for which patient is following up and patient name [facility] -Hypothyroidism -patient will require GI prophylaxis -Hypertension -Hypothyroidism For above-mentioned chronic medical problems patient will be continued on her home medications which are is appropriate
[2019-04-14] MEDS ORDERED: FAMOTIDINE 20 MG TAB PO SCH (21:00)
[2019-04-14] MEDS ORDERED: methylPREDNISolone SOD SUCCI 40 MG/ML 1 ML VIAL IV SCH (21:00)
== END 2019-04-14 15:22 | disposition home or self-care (01) | DRG 190 ==
LOC: EC 17:51 → 1SOBS 20:52 → OBSVTOIN 04-12 13:11
PROVIDERS: ADMIT Hospitalist; ATTEND Hospitalist
DX: J44.1 Chronic obstructive pulmonary disease with (acute) exacerbation (principal); J96.01 Acute respiratory failure with hypoxia; I26.99 Other pulmonary embolism without acute cor pulmonale; J81.1 Chronic pulmonary edema; E03.9 Hypothyroidism, unspecified; F41.9 Anxiety disorder, unspecified; I10 Essential (primary) hypertension; I87.2 Venous insufficiency (chronic) (peripheral); Z79.51 Long term (current) use of inhaled steroids; Z79.899 Other long term (current) drug therapy; Z80.7 Family history of other malignant neoplasms of lymphoid, hematopoietic and related tissues; Z82.49 Family history of ischemic heart disease and other diseases of the circulatory system; Z87.891 Personal history of nicotine dependence; Z90.710 Acquired absence of both cervix and uterus; Z60.2 Problems related to living alone; Z79.890 Hormone replacement therapy; R91.1 Solitary pulmonary nodule; E78.5 Hyperlipidemia, unspecified; I25.10 Atherosclerotic heart disease of native coronary artery without angina pectoris
CPT/HCPCS: 36415; 71046; 80053; 83880; 84484; 85025; 85379; 85610; 85730; 87040; 93005; 93306; 94640; 94760; 96374; 99285

== ENCOUNTER 2021-08-28 15:27 | Inpatient (IN) | payer BC ==
--- NOTE | 2021-08-28 15:57 | ED ---
General Adult HPI - General Chief complaint: Shortness of Breath Stated complaint: SOB Time Seen by Provider: 08/28/21 15:33 Source: EMS Mode of arrival: EMS Limitations: no limitations - History of Present Illness Initial comments: Dictation was produced using [employer] dictation software. please excuse any grammatical, word or spelling errors. Chief Complaint: 60-year-old female past medical history of unspecified nodules presents [facility] for cough shortness of breath History of Present Illness: 60-year-old female she has extensive pulmonary history 3. Patient has history of COPD and 22 lung nodules. The last several days she's had a productive cough. Patient has been told by her electronic typesetting machine operator that whenever she starts developing cough to seek medical attention. She states that her cough was initially productive and her sputum was cleared and started to turn white in little yellow. Patient has been mildly dyspneic. She went to her PCPs office where she was initially evaluated. She had a 2 view chest x-ray done and given a breathing treatment. She was then sent to our emergency department. Patient does not know why she is here. States that after the breathing treatments her symptoms improved. She was also given oral prednisone by EMS in route to our ER. Patient has any chest pain. Denies any sore throat. Patient sees a electronic typesetting machine operator in [place]. States that she got these lung nodules from a poison carpet. The ROS documented in this emergency department record has been reviewed and co nfirmed by me. Those systems with pertinent positive or negative responses have been documented in the HPI. All other systems are other negative and/or noncontributory. PHYSICAL EXAM: General Impression: Alert and oriented x3, not in acute distress HEENT: Normocephalic atraumatic, extra-ocular movements intact, pupils equal and reactive to light bilaterally, mucous membranes moist. Cardiovascular: Heart regular rate and rhythm Chest: Able to complete full sentences, no retractions, diminished lung sounds, mild end expiratory wheezing Abdomen: abdomen soft, non-tender, non-distended, no organomegaly Musculoskeletal: Pulses present and equal in all extremities, no peripheral edema Motor: no focal deficits noted Neurological: CN II-XII grossly intact, no focal motor or sensory deficits noted Skin: Intact with no visualized rashes Psych: Normal affect and mood ED course: 60-year-old female sent to the emergency department from primary care physician's office for dyspnea and cough. Vital signs upon arrival shows a 89% on room air. Patient wears 2.5 L of oxygen when necessary. She reports that she only wears oxygen whenever she feels short of breath and at night. She feels like she is been beating her oxygen more than usual. EKG interpretation: Ventricular rate 82, normal sinus rhythm,. 164, QRS 70, QTc 450. No CA prolongation, no QTC prolongation, no ST or T-wave changes noted. EKG compared to 04/11/2019 showing no changes. Overall, this EKG is unremarkable More history was obtained from Jenny who is the mid-level that sent patient to our emergency department. She reports that patient was hypoxic injury approximate 75% on room air. She is given ipratropium breathing treatment because she took an albuterol at home. Despite the breathing treatment patient still continued to be hypoxic.Laboratory evaluation obtained. CBC marked. Metabolic panel is negative. 4 panel vital PCR is negative for influenza, coronavirus or RSV. Patient reevaluated at bedside at 5:30 PM found to be in stable medical condition. Still slightly wheezy. Patient will be admitted for COPD exacerbation and alleged episode of hypoxia. Patient would benefit from observation admission with scheduled breathing treatments and pulmonology consultation. Patient is agreeable with plan. - Related Data Home Medications Medication Instructions Recorded Confirmed ALPRAZolam [Xanax] 0.25 - 0.5 mg PO BID 04/12/19 08/28/21 Budesonide/Formoterol Fumarate 2 puff INHALATION RT-DAILY 04/12/19 08/28/21 [Symbicort 160-4.5 Mcg Inhaler] HYDROcodone/APAP 10-325MG [[place] 1 tab PO TID-W/MEALS 04/12/19 08/28/21 10-325] Ipratropium-Albuterol Nebulize 3 ml INHALATION RT-Q4H PRN 04/12/19 08/28/21 [Duoneb 0.5 mg-3 mg/3 ml Soln] Montelukast [Singulair] 10 mg PO DAILY 04/12/19 08/28/21 Prasterone (Dhea) [Dhea] 25 mg PO DAILY 04/12/19 08/28/21 Thyroid,Pork [[place] Thyroid] 120 mg PO DAILY 04/12/19 08/28/21 Tiotropium [place] [Spiriva 1 puff INHALATION RT-DAILY 04/12/19 08/28/21 Respimat] Tretinoin [Retin-A 0.1%] 1 applic TOPICAL HS 04/12/19 08/28/21 Ubidecarenone [Co Q-10] 100 mg PO DAILY 04/12/19 08/28/21 Verapamil HCl [Verapamil ER] 240 mg PO DAILY 04/12/19 08/28/21 Vitamin B Complex 1 cap PO DAILY 04/12/19 08/28/21 Albuterol Inhaler [Ventolin Hfa 2 puff INHALATION RT-Q4H PRN 08/28/21 08/28/21 Inhaler] Compound Medication 1 applic TOPICAL DAILY 08/28/21 08/28/21 Escitalopram [Lexapro] 10 mg PO DAILY 08/28/21 08/28/21 Promethazine/Dextromethorphan 5 ml PO AC-TID 08/28/21 08/28/21 [Promethazine-Dm Syrup] Spironolactone-Hctz 25-25Mg 1 tab PO DAILY 08/28/21 08/28/21 [Aldactazide 25-25Mg] Allergies Allergy/AdvReac Type Severity Reaction Status Date / Time No Known Allergies Allergy Verified 08/28/21 16:29 Review of Systems ROS Statement: Those systems with pertinent positive or pertinent negative responses have been documented in the HPI. ROS Other: All systems not noted in ROS Statement are negative. Past Medical History Past Medical History: COPD Additional Past Medical History / Comment(s): lung nodules History of Any Multi-Drug Resistant Organisms: None Reported Past Surgical History: Appendectomy, Hysterectomy Additional Past Surgical History / Comment(s): pelvic surg, tummy tuck, Past Anesthesia/Blood Transfusion Reactions: Previous Problems w/ Anesthesia Additional Past Anesthesia/Blood Transfusion Reaction / Comment(s): Hard time bringing pt out of anesthesia. Past Psychological History: Anxiety Smoking Status: Current some day smoker Past Alcohol Use History: Occasional Past Drug Use History: None Reported - Past Family History Mother Family Medical History: Congestive Heart Failure (CHF) Additional Family Medical History / Comment(s): CABG X2 Father Additional Family Medical History / Comment(s): Father passed from Hodgkin's Lymphoma General Exam Limitations: no limitations Course Vital Signs 08/28/21 08/28/21 15:28 15:38 Temperature 99.0 F Pulse Rate 80 Respiratory 16 Rate Blood Pressure 143/67 O2 Sat by Pulse 89 L 94 L Oximetry Medical Decision Making - Lab Data Result diagrams: 08/28/21 16:13 08/28/21 16:13 Lab Results 08/28/21 08/28/21 08/28/21 Range/Units 15:47 16:13 16:13 WBC 10.5 (3.8-10.6) k/uL RBC 4.56 (3.80-5.40) m/uL Hgb 13.6 (11.4-16.0) gm/dL Hct 42.9 (34.0-46.0) % MCV 94.1 (80.0-100.0) fL MCH 29.8 (25.0-35.0) pg MCHC 31.7 (31.0-37.0) g/dL RDW 13.0 (11.5-15.5) % Plt Count 222 (150-450) k/uL MPV 8.6 Neutrophils % 76 % Lymphocytes % 16 % Monocytes % 6 % Eosinophils % 1 % Basophils % 0 % Neutrophils # 8.0 H (1.3-7.7) k/uL Lymphocytes # 1.7 (1.0-4.8) k/uL Monocytes # 0.6 (0-1.0) k/uL Eosinophils # 0.1 (0-0.7) k/uL Basophils # 0.0 (0-0.2) k/uL Sodium 134 L (137-145) mmol/L Potassium 4.2 (3.5-5.1) mmol/L Chloride 96 L (98-107) mmol/L Carbon Dioxide 32 H (22-30) mmol/L Anion Gap 6 mmol/L BUN 10 (7-17) mg/dL Creatinine 0.46 L (0.52-1.04) mg/dL Est GFR (CKD-EPI)AfAm >90 (>60 ml/min/1.73 sqM) Est GFR (CKD-EPI)NonAf >90 (>60 ml/min/1.73 sqM) Glucose 115 H (74-99) mg/dL Calcium 9.4 (8.4-10.2) mg/dL Influenza Type A (PCR) Not Detected (Not Detectd) Influenza Type B (PCR) Not Detected (Not Detectd) RSV (PCR) Not Detected (Not Detectd) SARS-CoV-2 (PCR) Not Detected (Not Detectd) Disposition Clinical Impression: Hypoxia Disposition: ADMITTED IP TO THIS HOSP Condition: Fair Referrals: Hussain Raymond MD [Primary Care Provider] - 1-2 days
[2021-08-28 16:55] LABS: Basophils % (A) 0 %; Eosinophils # (A) 0.1 k/uL (0-0.7); Eosinophils % (A) 1 %; HCT 42.9 % (34.0-46.0); HGB 13.6 gm/dL (11.4-16.0); Lymphocytes # (A) 1.7 k/uL (1.0-4.8); Lymphocytes % (A) 16 %; MCH 29.8 pg (25.0-35.0); MCHC 31.7 g/dL (31.0-37.0); MCV 94.1 fL (80.0-100.0); Mean Platelet Volume 8.6; Monocytes # (A) 0.6 k/uL (0-1.0); Monocytes % (A) 6 %; Neutrophils % (A) 76 %; Platelet Count 222 k/uL (150-450); RBC 4.56 m/uL (3.80-5.40); WBC 10.5 k/uL (3.8-10.6)
[2021-08-28 17:05] LABS: African American GFR (CKD) >90 (>60 ml/min/1.73 sqM); Anion Gap 6 mmol/L; Blood Urea Nitrogen 10 mg/dL (7-17); Calcium 9.4 mg/dL (8.4-10.2); Carbon Dioxide 32 mmol/L (22-30); Chloride 96 mmol/L (98-107); Glucose 115 mg/dL (74-99); Non-African American GFR(CKD) >90 (>60 ml/min/1.73 sqM); Potassium 4.2 mmol/L (3.5-5.1); Sodium 134 mmol/L (137-145)
--- NOTE | 2021-08-28 17:09 | XR ---
EXAMINATION TYPE: XR chest 2V DATE OF EXAM: 08/28/2021 COMPARISON: 04/28/2019 HISTORY: Cough TECHNIQUE: 3 views FINDINGS: Heart and mediastinum are normal. Lungs are clear. Diaphragm is normal. Bony thorax is inta ct. IMPRESSION: Normal chest. No change.
[2021-08-28] MEDS ORDERED: DEXAMETHASONE SOD PHOSPHATE 10 MG/ML 1 ML VIAL IV STA (17:15)
[2021-08-28] MEDS ORDERED: AZITHROMYCIN 500 MG in SODIUM CHLORIDE 0.9% 250 ML IVPB STA (17:25)
[2021-08-28] MEDS: SYMBICORT 160-4.5 MCG INHALER INHALATION SCH (20:27)
[2021-08-28] MEDS: IPRATROPIUM-ALBUTEROL 3 ML NEB INHALATION SCH (20:27)
[2021-08-29] MEDS ORDERED: IPRATROPIUM-ALBUTEROL 3 ML NEB INHALATION PRN (00:55)
[2021-08-29] MEDS: methylPREDNISolone SOD SUCCI 125 MG/2 ML VIAL IV SCH ×4 (01:18→17:46)
[2021-08-29] MEDS: ALPRAZolam 0.25 MG TAB PO PRN (01:24)
--- NOTE | 2021-08-29 02:00 | P.HPIM ---
History of Present Illness H&P Date: 08/28/21 Chief Complaint: sob 60 year old female with severe COPD on home oxygen , and history of multiple pulmonary nodule she went to her PCP office due to worsening respiratory symptoms over past few days , with increase wheezing and SOB, productive cough , denies any fever, chi lls, chest pain ,sore throat , myalgias. she has her family over visiting , and has been exposed to a lot of people, she is unvaccinated against covid . at her PCP office , she was found to have oxygen sat of 75% on room air, she was given breathing treatment and xrays, and was sent to our ED for further care. she denies any history of blood clots, denies any recent travel or hospitalization , denies active cancer . she denies any bleeding Patient does admit that she started smoking again since she is going through a lot of social stressors recently and she believes that this might have contributed and acute flareup in the ED, blood work overall unremarkable , COVID test negative. CXR no acute pathology her oxygen sat was in the 80s% on room air and she was wheezing , she was given breahing treatment and admitted for IV steroids and pulmonary eval Review of Systems Pertinent positives as noted in HPI. All other systems were reviewed and are negative Past Medical History Past Medical History: COPD Additional Past Medical History / Comment(s): lung nodules History of Any Multi-Drug Resistant Organisms: None Reported Past Surgical History: Appendectomy, Hysterectomy Additional Past Surgical History / Comment(s): pelvic surg x3 with mesh, tummy tuck, Past Anesthesia/Blood Transfusion Reactions: Previous Problems w/ Anesthesia Additional Past Anesthesia/Blood Transfusion Reaction / Comment(s): Hard time bringing pt out of anesthesia. Past Psychological History: Anxiety Smoking Status: Current some day smoker Past Alcohol Use History: Occasional Additional Past Alcohol Use History / Comment(s): . Past Drug Use History: None Reported - Past Family History Mother Family Medical History: Congestive Heart Failure (CHF) Additional Family Medical History / Comment(s): CABG X2 Father Additional Family Medical History / Comment(s): Father passed from Hodgkin's Lymphoma Medications and Allergies Home Medications Medication Instructions Recorded Confirmed Type ALPRAZolam [Xanax] 0.25 - 0.5 mg PO BID 04/12/19 08/28/21 History Budesonide/Formoterol Fumarate 2 puff INHALATION RT-BID 04/12/19 08/28/21 History [Symbicort 160-4.5 Mcg Inhaler] HYDROcodone/APAP 10-325MG [[place] 1 tab PO TID-W/MEALS 04/12/19 08/28/21 History 10-325] Ipratropium-Albuterol Nebulize 3 ml INHALATION RT-Q4H PRN 04/12/19 08/28/21 History [Duoneb 0.5 mg-3 mg/3 ml Soln] Montelukast [Singulair] 10 mg PO DAILY 04/12/19 08/28/21 History Prasterone (Dhea) [Dhea] 25 mg PO DAILY 04/12/19 08/28/21 History Thyroid,Pork [[place] Thyroid] 120 mg PO DAILY 04/12/19 08/28/21 History Tiotropium [place] [Spiriva 1 puff INHALATION RT-DAILY 04/12/19 08/28/21 History Respimat] Tretinoin [Retin-A 0.1%] 1 applic TOPICAL HS 04/12/19 08/28/21 History Ubidecarenone [Co Q-10] 100 mg PO DAILY 04/12/19 08/28/21 History Verapamil HCl [Verapamil ER] 240 mg PO DAILY 04/12/19 08/28/21 History Vitamin B Complex 1 cap PO DAILY 04/12/19 08/28/21 History Albuterol Inhaler [Ventolin Hfa 2 puff INHALATION RT-Q4H PRN 08/28/21 08/28/21 History Inhaler] Compound Medication 1 applic TOPICAL DAILY 08/28/21 08/28/21 History Escitalopram [Lexapro] 10 mg PO DAILY 08/28/21 08/28/21 History Promethazine/Dextromethorphan 5 ml PO AC-TID 08/28/21 08/28/21 History [Promethazine-Dm Syrup] Spironolactone-Hctz 25-25Mg 1 tab PO DAILY 08/28/21 08/28/21 History [Aldactazide 25-25Mg] Allergies Allergy/AdvReac Type Severity Reaction Status Date / Time No Known Allergies Allergy Verified 08/28/21 16:29 Physical Exam Vitals: Vital Signs Temp Pulse Pulse Resp BP BP Pulse Ox 08/28/21 20:40 97 08/28/21 20:39 82 08/28/21 20:29 78 08/28/21 19:38 82 20 08/28/21 19:02 98.3 F 82 20 149/74 94 L 08/28/21 18:30 91 L 08/28/21 18:29 98.6 F 93 20 156/78 87 L 08/28/21 17:55 83 18 111/61 92 L 08/28/21 15:38 94 L 08/28/21 15:28 99.0 F 80 16 143/67 89 L Intake and Output 08/28/21 08/28/21 08/29/21 14:59 22:59 06:59 Intake Total 300 Balance 300 Intake: Oral 300 Other: Voiding Method Toilet # Voids 1 Weight 77.111 kg Constitutional: No acute distress, conversant, pleasant Eyes: Anicteric sclerae, moist conjunctiva, Pupils equal round reactive to light ENMT: NC/AT Oropharynx clear, no erythema, or exudates Neck: Supple, FROM, no masses, or JVD No carotid bruits No thyromegaly Lungs: Decreased breath sounds throughout with prolonged expiratory phase and wheezing Clear to percussion Normal respiratory effort, no accessory muscle use Cardiovascular: Heart regular in rate and rhythm, No murmurs, gallops, or rubs No peripheral edema Abdominal: Soft Nontender, no guarding, rebound or rigidity Abdomen moving with respiration Normoactive bowel sounds No hepatomegaly, No splenomegaly No palpable mass No abdominal wall hernia noted Skin: Normal temperature, tone, texture, turgor No induration No subcutaneous nodules No rash, lesions No ulcers Extremities: No digital cyanosis No clubbing Pedal pulses intact and symmetrical Radial pulses intact and symmetrical No calf tenderness Psychiatric: Alert and oriented to person, place and time Appropriate affect fair judgement Neuro Muscles Strength 5/5 in all 4 extremities Sensation to light touch grossly present throughout Cranial nerves II-XII grossly intact No focal sensory deficits Lymphatics: no palpable cervical or supraclavicular , or inguinal lymph nodes Results CBC & Chem 7: 08/28/21 16:13 08/28/21 16:13 Labs: Abnormal Lab Results - Last 24 Hours (Table) 08/28/21 08/28/21 Range/Units 16:13 16:13 Neutrophils # 8.0 H (1.3-7.7) k/uL Sodium 134 L (137-145) mmol/L Chloride 96 L (98-107) mmol/L Carbon Dioxide 32 H (22-30) mmol/L Creatinine 0.46 L (0.52-1.04) mg/dL Glucose 115 H (74-99) mg/dL Thrombosis Risk Factor Assmnt - Choose All That Apply Any of the Below Risk Factors Present?: Yes Each Factor Represents 1 point: Abnormal pulmonary function (COPD), Obesity (BMI >25) Each Risk Factor Represents 2 Points: Age 61-74 years Thrombosis Risk Factor Assessment Total Risk Factor Score: 4 Thrombosis Risk Factor Assessment Level: Moderate Risk Assessment and Plan Assessment: Acute hypoxic respiratory failure Acute COPD exacerbation Respiratory panel negative Chest x-ray negative Unknown underlying cause that triggered patient acute flareup, however patient does admit to smoking recently since she is going through a lot of social stressors IV systemic steroids Breathing treatments [id number] Resume home inhalers Supplemental oxygen as needed Assessment home oxygen requirement Continue with azithromycin for anti-inflammatory effect Patient strongly counseled to abstain from smoking Xanax for anxiety Full code DVT prophylaxis heparin subcu 3 times a day Anticipated length of stay more than 2 midnights Anticipated discharge home
[2021-08-29] MEDS: IPRATROPIUM-ALBUTEROL 3 ML NEB INHALATION SCH ×4 (06:27→21:34)
[2021-08-29] MEDS: SYMBICORT 160-4.5 MCG INHALER INHALATION SCH ×2 (06:27→17:39)
[2021-08-29] MEDS ORDERED: BENZONATATE 100 MG CAP PO PRN (06:50)
[2021-08-29] MEDS: HYDROcodone/APAP 10-325MG 1 EACH TAB PO SCH ×3 (07:46→18:12)
[2021-08-29] MEDS: VERAPAMIL SR 240 MG TABLET.ER PO SCH (07:46)
[2021-08-29] MEDS: THYROID, PORK 30 MG TAB PO SCH (07:46)
[2021-08-29] MEDS: PROMETHAZINE HCL 6.25 MG/5 ML CUP PO SCH ×3 (07:46→18:17)
[2021-08-29] MEDS: MONTELUKAST 10 MG TAB PO SCH (07:47)
[2021-08-29] MEDS: ESCITALOPRAM 10 MG TAB PO SCH ×2 (07:47→07:52)
[2021-08-29] MEDS: SPIRONOLACTONE-HCTZ 25-25MG 1 EACH TAB PO SCH (07:47)
[2021-08-29] MEDS: HEPARIN SODIUM,PORCINE/PF 5,000 UNIT/0.5 ML SYRINGE SQ SCH ×3 (07:48→16:31)
[2021-08-29] MEDS ORDERED: IPRATROPIUM 0.5 MG/2.5 ML NEBU INHALATION SCH (08:00)
[2021-08-29] MEDS ORDERED: predniSONE 20 MG TAB PO SCH (09:00)
--- NOTE | 2021-08-29 12:49 | P.CNPUL ---
History of Present Illness Consult date: 08/29/21 Requesting physician: Jesus Casey Reason for consult: dyspnea Chief complaint: Shortness of breath, productive sputum History of present illness: This is a 60-year-old female patient who follows with Dr. Raymond as her primary care provider. She has a history of hypothyroidism, anxiety, hypert ension. She has has a history of chronic and ongoing tobacco dependence and chronic obstructive pulmonary disease. She follows with a table assembler in [facility]. She is maintained on Symbicort, Spiriva, nebulized treatments and Singulair in the outpatient setting. She also has home oxygen at 2.5 L at night. She was seen at her PCPs office yesterday for shortness of breath and was found to be hypoxemic and was sent here by ambulance. Chest x-ray revealed no acute pulmonary process. The patient is seen today in consultation on the regular medical floor. Currently sitting up the bedside. Awake and alert in no acute distress. Maintaining O2 saturations in the 90s on 2 L/m per nasal cannula. Afebrile. Hemodynamically stable. White count 10.5. Hemoglobin 13.6. Sodium 134. Potassium 4.2. Bicarb 32. Creatinine 0.46. Influenza screen negative. RSV screen negative. Coronavirus negative. She's been initiated on Symbicort, DuoNeb inhalations, IV Solu-Medrol. Empiric antibiotics in the form of azithromycin. Review of Systems REVIEW OF SYSTEMS: CONSTITUTIONAL: Denies any recent significant weight loss or weight gain. EYES: Denies change in vision. EARS, NOSE, MOUTH, THROAT: Denies headaches, denies sore throat. CARDIOVASCULAR: Denies chest pain, palpitations or syncopal episodes. RESPIRATORY: Positive shortness of breath, cough, congestion no hemoptysis. GASTROINTESTINAL: Denies change in appetite, denies abdominal pain GENITOURINARY: Denies hematuria, denies infections. MUSKULOSKELETAL: Denies pain, denies swelling. INTEGUMENTARY: Denies rash, denies eczema. NEUROLOGICAL: Denies recent memory loss, no recent seizure activity. PSYCHIATRIC: Denies anxiety, denies depression. HEMATOLOGIC/LYMPHATIC: Denies anemia, denies enlarged lymph nodes. Past Medical History Past Medical History: COPD Additional Past Medical History / Comment(s): lung nodules History of Any Multi-Drug Resistant Organisms: None Reported Past Surgical History: Appendectomy, Hysterectomy Additional Past Surgical History / Comment(s): pelvic surg x3 with mesh, tummy tuck, Past Anesthesia/Blood Transfusion Reactions: Previous Problems w/ Anesthesia Additional Past Anesthesia/Blood Transfusion Reaction / Comment(s): Hard time bringing pt out of anesthesia. Past Psychological History: Anxiety Smoking Status: Current some day smoker Past Alcohol Use History: Occasional Additional Past Alcohol Use History / Comment(s): . Past Drug Use History: None Reported - Past Family History Mother Family Medical History: Congestive Heart Failure (CHF) Additional Family Medical History / Comment(s): CABG X2 Father Additional Family Medical History / Comment(s): Father passed from Hodgkin's Lymphoma Medications and Allergies Home Medications Medication Instructions Recorded Confirmed Type ALPRAZolam [Xanax] 0.25 - 0.5 mg PO BID 04/12/19 08/28/21 History Budesonide/Formoterol Fumarate 2 puff INHALATION RT-BID 04/12/19 08/28/21 History [Symbicort 160-4.5 Mcg Inhaler] HYDROcodone/APAP 10-325MG [[place] 1 tab PO TID-W/MEALS 04/12/19 08/28/21 History 10-325] Ipratropium-Albuterol Nebulize 3 ml INHALATION RT-Q4H PRN 04/12/19 08/28/21 History [Duoneb 0.5 mg-3 mg/3 ml Soln] Montelukast [Singulair] 10 mg PO DAILY 04/12/19 08/28/21 History Prasterone (Dhea) [Dhea] 25 mg PO DAILY 04/12/19 08/28/21 History Thyroid,Pork [[place] Thyroid] 120 mg PO DAILY 04/12/19 08/28/21 History Tiotropium [place] [Spiriva 1 puff INHALATION RT-DAILY 04/12/19 08/28/21 History Respimat] Tretinoin [Retin-A 0.1%] 1 applic TOPICAL HS 04/12/19 08/28/21 History Ubidecarenone [Co Q-10] 100 mg PO DAILY 04/12/19 08/28/21 History Verapamil HCl [Verapamil ER] 240 mg PO DAILY 04/12/19 08/28/21 History Vitamin B Complex 1 cap PO DAILY 04/12/19 08/28/21 History Albuterol Inhaler [Ventolin Hfa 2 puff INHALATION RT-Q4H PRN 08/28/21 08/28/21 History Inhaler] Compound Medication 1 applic TOPICAL DAILY 08/28/21 08/28/21 History Escitalopram [Lexapro] 10 mg PO DAILY 08/28/21 08/28/21 History Promethazine/Dextromethorphan 5 ml PO AC-TID 08/28/21 08/28/21 History [Promethazine-Dm Syrup] Spironolactone-Hctz 25-25Mg 1 tab PO DAILY 08/28/21 08/28/21 History [Aldactazide 25-25Mg] Allergies Allergy/AdvReac Type Severity Reaction Status Date / Time No Known Allergies Allergy Verified 08/28/21 16:29 Physical Exam Vitals: Vital Signs Temp Pulse Pulse Resp BP BP Pulse Ox 08/29/21 11:20 77 08/29/21 11:09 72 08/29/21 06:52 97.7 F 80 15 126/69 91 L 08/29/21 06:39 76 08/29/21 06:27 76 91 L 08/29/21 02:00 16 08/29/21 01:59 98.4 F 72 16 137/79 96 08/28/21 20:40 97 08/28/21 20:39 82 08/28/21 20:29 78 08/28/21 19:38 82 20 08/28/21 19:02 98.3 F 82 20 149/74 94 L 08/28/21 18:30 91 L 08/28/21 18:29 98.6 F 93 20 156/78 87 L 08/28/21 17:55 83 18 111/61 92 L 08/28/21 15:38 94 L 08/28/21 15:28 99.0 F 80 16 143/67 89 L Intake and Output 08/28/21 08/29/21 08/29/21 22:59 06:59 14:59 Intake Total 300 380 Balance 300 380 Intake: Oral 300 380 Other: Voiding Method Toilet Toilet Toilet # Voids 1 2 Weight 77.111 kg GENERAL EXAM: Alert, active, 1-year-old female patient, on 2 L nasal cannula, comfortable in no apparent distress. HEAD: Normocephalic. EYES: Normal reaction of pupils, equal size. NOSE: Clear with pink turbinates. THROAT: No erythema or exudates. NECK: No masses, no JVD. CHEST: No chest wall deformity. LUNGS: Equal air entry with end expiratory wheeze, diminished. CVS: S1 and S2 normal with no audible murmur, regular rhythm. ABDOMEN: No hepatosplenomegaly, normal bowel sounds, no guarding or rigidity. SPINE: No scoliosis or deformity SKIN: No rashes CENTRAL NERVOUS SYSTEM: No focal deficits, tone is normal in all 4 extremities. EXTREMITIES: There is no peripheral edema. No clubbing, no cyanosis. Peripher al pulses are intact. Results - Laboratory Findings CBC and BMP: 08/28/21 16:13 08/28/21 16:13 Abnormal lab findings: Abnormal Labs 08/28/21 08/28/21 16:13 16:13 Neutrophils # 8.0 H Sodium 134 L Chloride 96 L Carbon Dioxide 32 H Creatinine 0.46 L Glucose 115 H - Diagnostic Findings Chest x-ray: image reviewed (No acute pulmonary process) Assessment and Plan Assessment: 1 Acute on chronic hypoxemic respiratory failure secondary to an acute exacerbation of chronic obstructive pulmonary disease 2 Chronic and ongoing tobacco dependence 3 History of anxiety/depression 4 Hypothyroidism 5 Hypertension 6 History of bladder suspension with mesh Plan: The patient was seen and evaluated by Dr. Schaffer Chest x-ray and labs reviewed Continue DuoNeb inhalations, Symbicort, IV Solu-Medrol Educated regarding the importance of complete smoking cessation Probable discharge in the a.m. To follow up with her table assembler out of [place] We will continue to follow and make further recommendations based on her clinical status I, the cosigning physician, performed a history & physical examination of the patient. Lungs sounds with bilateral end expiratory wheeze, diminished. Maintaining O2 saturations in the 90s on 2 L/m per nasal cannula. I discussed the assessment and plan of care with my nurse practitioner, Bhavya Berumen. I attest to the above consultation as dictated by her. Time with Patient: Greater than 30
[2021-08-29] MEDS: AZITHROMYCIN 500 MG TAB PO SCH (13:03)
--- NOTE | 2021-08-29 13:30 | P.PN ---
Subjective Patient is feeling the same compared to yesterday. She told me that she only uses oxygen at home at nighttime. It is not clear to her whether she was diagnosed with COPD or not. She told me that she follow-up with a physician in [place] that she is not sure if his a cut off sawyer or not. Objective - Vital Signs Vital signs: Vital Signs Temp 97.7 F 08/29/21 06:52 Pulse 77 08/29/21 11:20 Resp 15 08/29/21 06:52 BP 126/69 08/29/21 06:52 Pulse Ox 91 L 08/29/21 06:52 Intake & Output 08/28/21 08/29/21 08/29/21 18:59 06:59 18:59 Intake Total 300 380 Balance 300 380 Weight 77.111 kg Intake: Oral 300 380 Other: Voiding Method Toilet Toilet # Voids 2 - Exam General: The patient is awake and alert, in no distress Eye: there is normal conjunctiva bilaterally. Neck: The neck is supple, there is no JVD. Cardiovascular: Normal S1-S2, no S3-S4, no murmurs. Respiratory: Lungs are diminished with mild end expiratory wheezing Gastrointestinal: Abdomen is soft, nontender Musculoskeletal: There is no pedal edema. Neurological:. Speech is normal. Skin: Skin is warm and dry - Labs CBC & Chem 7: 08/28/21 16:13 08/28/21 16:13 Labs: Abnormal Lab Results - Last 24 Hours (Table) 08/28/21 08/28/21 Range/Units 16:13 16:13 Neutrophils # 8.0 H (1.3-7.7) k/uL Sodium 134 L (137-145) mmol/L Chloride 96 L (98-107) mmol/L Carbon Dioxide 32 H (22-30) mmol/L Creatinine 0.46 L (0.52-1.04) mg/dL Glucose 115 H (74-99) mg/dL Assessment and Plan Assessment: This is a 60-year-old female with past medical history noted below presented to the emergency room with worsening shortness of breath. Patient was evaluated in the ER and admitted to the hospital for further management of her medical problems noted below. 1. Acute COPD exacerbation 2. Acute hypoxic respiratory failure 3. Tobacco abuse 4. Chronic medical problems, hypothyroidism, hypertension, obstructive sleep apnea on nocturnal O2 at home Today, I reviewed her medication list and lab work results. Continue bronchodilators and IV steroids. Pulmonology following, appreciate recommendations. Chest x-ray with no acute findings. Wean off O2 as tolerated for O2 sats greater than 88%.
[2021-08-30] MEDS: methylPREDNISolone SOD SUCCI 125 MG/2 ML VIAL IV SCH ×3 (00:03→11:42)
[2021-08-30] MEDS: HEPARIN SODIUM,PORCINE/PF 5,000 UNIT/0.5 ML SYRINGE SQ SCH ×4 (00:03→23:00)
[2021-08-30] MEDS: ALPRAZolam 0.25 MG TAB PO PRN ×3 (02:17→19:39)
[2021-08-30] MEDS: SYMBICORT 160-4.5 MCG INHALER INHALATION SCH ×3 (07:20→20:19)
[2021-08-30] MEDS: IPRATROPIUM-ALBUTEROL 3 ML NEB INHALATION SCH ×4 (07:37→20:06)
[2021-08-30] MEDS: ESCITALOPRAM 10 MG TAB PO SCH (08:55)
[2021-08-30] MEDS: HYDROcodone/APAP 10-325MG 1 EACH TAB PO SCH ×3 (08:57→16:30)
[2021-08-30] MEDS: MONTELUKAST 10 MG TAB PO SCH (08:59)
[2021-08-30] MEDS: PROMETHAZINE HCL 6.25 MG/5 ML CUP PO SCH ×3 (08:59→16:31)
[2021-08-30] MEDS: SPIRONOLACTONE-HCTZ 25-25MG 1 EACH TAB PO SCH (09:00)
[2021-08-30] MEDS: THYROID, PORK 30 MG TAB PO SCH (09:01)
[2021-08-30] MEDS: VERAPAMIL SR 240 MG TABLET.ER PO SCH (09:01)
[2021-08-30] MEDS: AZITHROMYCIN 500 MG TAB PO SCH (11:00)
--- NOTE | 2021-08-30 15:10 | P.PN ---
Subjective Patient is feeling better today. She said that she is not ready to go home yet. She still having some shortness of breath. Objective - Vital Signs Vital signs: Vital Signs Temp 98.2 F 08/30/21 13:59 Pulse 83 08/30/21 13:59 Resp 18 08/30/21 14:09 BP 124/64 08/30/21 13:59 Pulse Ox 88 L 08/30/21 09:20 Intake & Output 08/29/21 08/30/21 08/30/21 18:59 06:59 18:59 Intake Total 380 300 Balance 380 300 Intake: Oral 380 300 Other: Voiding Method Toilet Toilet Toilet # Voids 2 3 - Exam General: The patient is awake and alert, in no distress Eye: there is normal conjunctiva bilaterally. Neck: The neck is supple, there is no JVD. Cardiovascular: Normal S1-S2, no S3-S4, no murmurs. Respiratory: Lungs are diminished with mild end expiratory wheezing Gastrointestinal: Abdomen is soft, nontender Musculoskeletal: There is no pedal edema. Neurological:. Speech is normal. Skin: Skin is warm and dry - Labs CBC & Chem 7: 08/28/21 16:13 08/28/21 16:13 Assessment and Plan Assessment: This is a 60-year-old female with past medical history noted below presented to the emergency room with worsening shortness of breath. Patient was evaluated in the ER and admitted to the hospital for further management of her medical problems noted below. 1. Acute COPD exacerbation 2. Acute hypoxic respiratory failure 3. Tobacco abuse 4. Chronic medical problems, hypothyroidism, hypertension, obstructive sleep apnea on nocturnal O2 at home Today, I reviewed her medication list and lab work results. Continue bronchodilators and IV steroids. Pulmonology following, appreciate recommendations. Chest x-ray with no acute findings. Wean off O2 as tolerated for O2 sats greater than 88%.
[2021-08-30] MEDS: methylPREDNISolone SOD SUCCI 40 MG/ML 1 ML VIAL IV SCH (19:39)
[2021-08-31] MEDS: ALPRAZolam 0.25 MG TAB PO PRN ×2 (02:56→11:47)
[2021-08-31] MEDS: IPRATROPIUM-ALBUTEROL 3 ML NEB INHALATION SCH ×2 (08:21→11:36)
[2021-08-31] MEDS: SYMBICORT 160-4.5 MCG INHALER INHALATION SCH (08:21)
[2021-08-31 08:25] VITALS: BP 156/71; RESP 16; TEMP 98.4
[2021-08-31] MEDS: HYDROcodone/APAP 10-325MG 1 EACH TAB PO SCH ×2 (09:17→12:41)
[2021-08-31] MEDS: PROMETHAZINE HCL 6.25 MG/5 ML CUP PO SCH ×2 (09:18→11:48)
[2021-08-31] MEDS: THYROID, PORK 30 MG TAB PO SCH (09:19)
[2021-08-31] MEDS: HEPARIN SODIUM,PORCINE/PF 5,000 UNIT/0.5 ML SYRINGE SQ SCH (09:19)
[2021-08-31] MEDS: MONTELUKAST 10 MG TAB PO SCH (09:20)
[2021-08-31] MEDS: ESCITALOPRAM 10 MG TAB PO SCH (09:20)
[2021-08-31] MEDS: SPIRONOLACTONE-HCTZ 25-25MG 1 EACH TAB PO SCH (09:20)
[2021-08-31] MEDS: VERAPAMIL SR 240 MG TABLET.ER PO SCH (09:21)
[2021-08-31] MEDS: methylPREDNISolone SOD SUCCI 40 MG/ML 1 ML VIAL IV SCH (09:23)
--- NOTE | 2021-08-31 10:09 | P.DS ---
Providers Date of admission: 08/29/21 09:24 Expected date of discharge: 08/31/21 Attending physician: Jesus Casey MD Consults: 08/28/21 17:25 Consult Physician Routine Consulting Provider: Abi Schaffer Consult Reason/Comments: copd exacerbation Do you want consulting provider notified?: Yes Primary care physician: Hussain Raymond MD Hospital Course: This is a 60-year-old female with past medical history noted below presented to the emergency room with worsening shortness of breath. Patient was evaluated in the ER and admitted to the hospital for further management of her medical problems noted below. 1. Acute COPD exacerbation 2. Acute hypoxic respiratory failure 3. Tobacco abuse 4. Chronic medical problems, hypothyroidism, hypertension, obstructive sleep apnea on nocturnal O2 at home Patient was treated with IV Solu-Medrol and bronchodilator. Her overall condition improved significantly. On the day of discharge, patient was able to ambulate with no shortness of breath. She finished 3 days course of azithromycin here in the hospital. She was transitioned to oral prednisone 40 mg daily for 3 more days. Patient was referred to a local lpta for follow-up. She will continue her inhalers at home as prescribed. Patient will be discharged home in a stable condition. Physical exam: General: The patient is awake and alert, in no distress Eye: there is normal conjunctiva bilaterally. Neck: The neck is supple, there is no JVD. Cardiovascular: Normal S1-S2, no S3-S4, no murmurs. Respiratory: Lungs clear to auscultation bilaterally Gastrointestinal: Abdomen is soft, nontender Musculoskeletal: There is no pedal edema. Neurological:. Speech is normal. Skin: Skin is warm and dry Patient Condition at Discharge: Fair Plan - Discharge Summary Discharge Rx Participant: No New Discharge Prescriptions: New predniSONE [Deltasone] 40 mg PO DAILY #6 tab Continue Montelukast [Singulair] 10 mg PO DAILY Verapamil HCl [Verapamil ER] 240 mg PO DAILY Tiotropium [place] [Spiriva Respimat] 1 puff INHALATION RT-DAILY Budesonide/Formoterol Fumarate [Symbicort 160-4.5 Mcg Inhaler] 2 puff INHALATION RT-BID Tretinoin [Retin-A 0.1%] 1 applic TOPICAL HS Ipratropium-Albuterol Nebulize [Duoneb 0.5 mg-3 mg/3 ml Soln] 3 ml INHALATION RT-Q4H PRN PRN Reason: Shortness Of Breath Ubidecarenone [Co Q-10] 100 mg PO DAILY Prasterone (Dhea) [Dhea] 25 mg PO DAILY HYDROcodone/APAP 10-325MG [[place] 10-325] 1 tab PO TID-W/MEALS Thyroid,Pork [[place] Thyroid] 120 mg PO DAILY ALPRAZolam [Xanax] 0.25 - 0.5 mg PO BID Vitamin B Complex 1 cap PO DAILY Escitalopram [Lexapro] 10 mg PO DAILY Promethazine/Dextromethorphan [Promethazine-Dm 6.25-15 mg/5Ml] 5 ml PO AC-TID Spironolactone-Hctz 25-25Mg [Aldactazide 25-25 MG] 1 tab PO DAILY Compound Medication 1 applic TOPICAL DAILY Albuterol Inhaler [Ventolin Hfa Inhaler] 2 puff INHALATION RT-Q4H PRN PRN Reason: Shortness Of Breath Discharge Medication List ALPRAZolam [Xanax] 0.25 - 0.5 mg PO BID 04/12/19 [History] Budesonide/Formoterol Fumarate [Symbicort 160-4.5 Mcg Inhaler] 2 puff INHALATION RT-BID 04/12/19 [History] HYDROcodone/APAP 10-325MG [[place] 10-325] 1 tab PO TID-W/MEALS 04/12/19 [History] Ipratropium-Albuterol Nebulize [Duoneb 0.5 mg-3 mg/3 ml Soln] 3 ml INHALATION RT-Q4H PRN 04/12/19 [History] Montelukast [Singulair] 10 mg PO DAILY 04/12/19 [History] Prasterone (Dhea) [Dhea] 25 mg PO DAILY 04/12/19 [History] Thyroid,Pork [[place] Thyroid] 120 mg PO DAILY 04/12/19 [History] Tiotropium [place] [Spiriva Respimat] 1 puff INHALATION RT-DAILY 04/12/19 [History] Tretinoin [Retin-A 0.1%] 1 applic TOPICAL HS 04/12/19 [History] Ubidecarenone [Co Q-10] 100 mg PO DAILY 04/12/19 [History] Verapamil HCl [Verapamil ER] 240 mg PO DAILY 04/12/19 [History] Vitamin B Complex 1 cap PO DAILY 04/12/19 [History] Albuterol Inhaler [Ventolin Hfa Inhaler] 2 puff INHALATION RT-Q4H PRN 08/28/21 [History] Compound Medication 1 applic TOPICAL DAILY 08/28/21 [History] Escitalopram [Lexapro] 10 mg PO DAILY 08/28/21 [History] Promethazine/Dextromethorphan [Promethazine-Dm 6.25-15 mg/5Ml] 5 ml PO AC-TID 08/28/21 [History] Spironolactone-Hctz 25-25Mg [Aldactazide 25-25 MG] 1 tab PO DAILY 08/28/21 [History] predniSONE [Deltasone] 40 mg PO DAILY #6 tab 08/31/21 [Rx] Follow up Appointment(s)/Referral(s): Hussain Raymond MD [Primary Care Provider] - 1-2 days Dayne Kuo MD [STAFF PHYSICIAN] - 1 Week (for referral to Pulmonary Rehab) Discharge Disposition: HOME SELF-CARE
[2021-08-31] MEDS: AZITHROMYCIN 500 MG TAB PO SCH (11:48)
[2021-08-31 11:50] VITALS: PULSE 100
== END 2021-08-31 14:34 | disposition home or self-care (01) | DRG 190 ==
LOC: EC 15:27 → 6NMEDSUR 17:25 → OBSVTOIN 08-29 09:24
PROVIDERS: ADMIT Internal Medicine; ATTEND Internal Medicine
DX: J44.1 Chronic obstructive pulmonary disease with (acute) exacerbation (principal); J96.21 Acute and chronic respiratory failure with hypoxia; E03.9 Hypothyroidism, unspecified; F17.200 Nicotine dependence, unspecified, uncomplicated; F41.9 Anxiety disorder, unspecified; G47.33 Obstructive sleep apnea (adult) (pediatric); I10 Essential (primary) hypertension; Z20.822 Contact with and (suspected) exposure to COVID-19; Z79.51 Long term (current) use of inhaled steroids; Z79.899 Other long term (current) drug therapy; Z80.7 Family history of other malignant neoplasms of lymphoid, hematopoietic and related tissues; Z82.49 Family history of ischemic heart disease and other diseases of the circulatory system; Z90.710 Acquired absence of both cervix and uterus
CPT/HCPCS: 36415; 71046; 80048; 85025; 87636; 93005; 94640; 94760; 99285